=== PATIENT | male | born 1980 | race Two or more races ===

== ENCOUNTER 2022-01-13 14:35 | Emergency (ER) | payer OTHER, SELFPAY ==
[2022-01-13 16:15] VITALS: BP 195/102; PULSE 91; RESP 20; TEMP 36.8; O2SAT 97; BMI 36.5
[2022-01-13 16:28] LABS: Hematocrit 43.1 % (42.0-52.0); Hemoglobin 14.5 g/dl (14.0-18.0); Mean Corpuscular HGB Conc 33.6 g/dl (31.0-36.0); Mean Corpuscular Hemoglobin 29.8 pg (27.0-33.0); Mean Corpuscular Volume 88.5 fL (80.0-98.0); Mean Platelet Volume 10.4 fL (9.4-12.4); Platelet Count 213 X10*3/uL (160-400); Red Blood Count 4.87 X10*6/uL (4.60-5.80); Red Cell Distribution Width 13.2 % (11.0-16.0); White Blood Count 8.6 X10*3/uL (4.8-10.8)
[2022-01-13 16:41] LABS: Anion Gap 13 (12-20); Blood Urea Nitrogen 13 mg/dL (9-16); Calcium 9.9 mg/dL (8.4-10.2); Carbon Dioxide 27 mmol/L (22-29); Chloride 104 mmol/L (96-108); Creatinine Clr Calc Pharmacy 109.8; Estimated Glomerular Filt Rate > 60; Glucose Random 292 mg/dL (60-115); Potassium 4.8 mmol/L (3.3-5.1); Sodium 139 mmol/L (135-145)
[2022-01-13 16:47] LABS: Troponin-I High Sensitivity 18.8 ng/L (<3.5-35.0)
== END 2022-01-13 18:40 | disposition left against medical advice (07) ==
LOC: HO.ED 18:40
PROVIDERS: Emergency Provider Emergency Medicine; PCP Internal Medicine
DX: I10 Essential (primary) hypertension (principal); R51.9 Headache, unspecified; R42 Dizziness and giddiness; E11.9 Type 2 diabetes mellitus without complications; E78.00 Pure hypercholesterolemia, unspecified; Z91.14 Patient's other noncompliance with medication regimen
CPT/HCPCS: 36415; 80048; 84484; 85027; 99282; 99283

== ENCOUNTER 2022-04-11 22:36 | Emergency (ER) | payer OTHER, SELFPAY ==
[2022-04-11 23:57] VITALS: BP 193/102; PULSE 84; RESP 16; TEMP 36.1; O2SAT 96; BMI 38.0
--- NOTE | 2022-04-12 02:28 | ED.WOUNDLAC ---
HPI - Wound/Laceration General Chief Complaint: Wound/Laceration Stated Complaint: diabetic; Toe lac Source: patient Mode of arrival: ambulatory Limitations: no limitations History of Present Illness HPI narrative: 41-year-old male presents with laceration to the bottom of his right great toe after jumping into a pool and hitting something hard. Onset (ago): hour(s) (Within the hour of arrival) Extremity Location: right: foot (Great toe) Place: home Patient tetanus UTD: No Context: accidental Associated symptoms: pain Treatments prior to arrival: bandage Related Data Home Medications Medication Instructions Recorded Confirmed blood sugar diagnostic (FreeStyle #10 ea 08/21/20 10/27/21 Lite Strips) lancets 28 gauge (FreeStyle #100 ea 08/21/20 10/27/21 Lancets) Previous Rx's Medication Instructions Recorded blood-glucose meter (FreeStyle #1 ea 10/24/20 [place] Lite) ergocalciferol (vitamin D2) 1,250 1,250 mcg PO QWEEK 90 Days #13 cap 10/27/21 mcg (50,000 unit) capsule lisinopril 20 mg tablet 20 mg PO DAILY 90 Days #90 tab 10/27/21 metformin 500 mg tablet,extended 500 mg PO BID 90 Days #180 tab 10/27/21 release 24 hr amoxicillin 875 mg-potassium 1 tab PO Q12H 7 Days #14 tab 04/12/22 clavulanate 125 mg tablet Allergies Allergy/AdvReac Type Severity Reaction Status Date / Time shrimp [SHRIMP] Allergy Mild ALLERGERY Verified 04/12/22 00:04 SCREENING grass pollen Allergy Unknown Unknown Verified 04/12/22 00:04 nut - unspecified [nut] Allergy Unknown THROAT Verified 04/12/22 00:04 ITCHING pollen extracts [POLLEN] Allergy Unknown CONGESTION, Verified 04/12/22 00:04 SWELLING tuberculin,PPD,multi-puncture Allergy Unknown postitive Verified 04/12/22 00:04 PPD, neg cxr 2017 BERRIES Allergy Unknown UNKNOWN Uncoded 04/12/22 00:04 Review of Systems Review of Systems: Constitutional: No Fever, No Chills ENT/Mouth: No Ear Pain, No Hoarseness, No sore throat Eyes: No Eye Pain, No Swelling, No Redness, No Foreign Body Cardiovascular: No Chest Pain, No SOB Respiratory: No Cough, No Dyspnea Gastrointestinal: No Nausea, No Vomiting, No Diarrhea, No abdominal Pain Genitourinary: No Dysuria, No Hematuria Musculoskeletal: positive right great toe pain, No Myalgias, No Joint Swelling Skin: Right great toe laceration, No rash Neuro: No Weakness, No Numbness, No Paresthesias, No Loss of Consciousness, No Dizziness, No Headache Psych: No Anxiety/Panic, No Depression Heme/Lymph: no easy bruising, no Lymphadenopathy Endocrine: No Polyuria, No Polydipsia Yes all other systems are reviewed and are negative [facility] Past Medical History Attestation statement: The following information was validated with the patient. Source: old records reviewed Medical History Diabetes mellitus Essential hypertension Hypovitaminosis D Obese Pure hypercholesterolemia Transaminitis Surgical History No pertinent past surgical history Family History Family History Father Diabetes Hypertension Mother Hypertension Diabetes Stroke Social History Social History Housing: Apartment Alcohol intake: current Alcohol intake frequency: holidays/special occasions only Alcohol type: beer Patient Tobacco Use Status: Never used Tobacco e-Cigarette/Vaping Use: Never Used Second Hand Smoke Exposure: No Advance Directives: No Advance Directives Information Provided: Yes service: No Current occupational status: employed Current occupational exposures/hazards: No Physical Exam Vital Signs: Vital Signs: Last Vital Signs Temp 97 F 04/11/22 23:57 Pulse 84 04/11/22 23:57 Resp 16 04/11/22 23:57 BP 193/102 H 04/11/22 23:57 Pulse Ox 96 04/11/22 23:57 BMI result Body Mass Index 38.0 Appearance: Alert. Oriented X3. No acute distress. Eyes: Pupils equal, round and reactive to light. ENT: Pharynx normal. Neck: Normal inspection. Neck supple. CVS: Normal heart rate and rhythm. Pulses normal. Respiratory: No respiratory distress. Breath sounds normal. Abdomen: Soft and nontender. Skin: 5 cm laceration to the plantar aspect of the great toe. Normal skin color. Normal skin turgor. Extremities: No lower extremity edema. Full range of motion. Strength 5/5. Brisk capillary refill. Neuro: No motor deficit. No sensory deficit. Cranial nerves 2-12 intact. Course Course Course Narrative: 41-year-old male presents with laceration to the plantar aspect of the right great toe. Patient was jumping into a pool and hit something hard and sharp. Patient is diabetic. Unknown when last Tdap vaccine was given. Will update Tdap vaccine. Physical exam indicates full range of motion, no indication of tendon injury or deficit. No foreign body noted on irrigation and exploration of wound. Prepped and draped in sterile fashion. Irrigated with copious amounts of normal saline under pressure. Betadine cleanse. Patient tolerated procedure well. Please refer to procedure note for details. 03:30 patient maintains brisk capillary refill and equal pulses. Will discharge home with Augmentin and follow-up with podiatry. Patient verbalized understanding of and agrees to plan of care to discharge home. Verbalized understanding of signs and symptoms indicating need for emergent intervention MDM - Wound/Laceration Differential Diagnosis Differential diagnosis: Likely laceration Medical Records Attestation: I reviewed the patient's medical records. Procedures Laceration Laceration 1: Site: lower extremity (Right plantar surface of great toe) Side (If applicable): right Size (cm): 5 Description: flap and irregular Depth: simple, single layer Local Anesthetic: lidocaine 1% Amount of anesthesia used (mL): 8 Pre-repair: wound explored, irrigated extensively and deep structures intact Skin layer closed with: nylon Size (cm): 4-0 Number of sutures: 13 Technique: simple, interrupted Discharge Plan Discharge Clinical Impression: Laceration Patient Disposition: Home, Self-Care Instructions: Care For Your Stitches (ED), Laceration (ED) Additional Instructions: You were treated for laceration to the bottom of the right great toe. We placed 13 sutures. Please return in 10 days for suture removal. We are treating you with Augmentin 875 mg q.12 hours for the next 7 days. Please finish the entire course of this medication. Please take Tylenol 650 mg every 6 hours as needed and alternate with Motrin 600 mg every 6 hours as needed for pain management. Write down what time you take these medications to prevent accidental overdose. Follow-up with podiatry. You need diabetic foot care. I referred you to Dr. Bustamante. Thank you for choosing this emergency department for evaluation. Please follow-up with primary care physician as needed. Return to the emergency department for any new, concerning, or worsening symptoms. Prescriptions: New amoxicillin-pot clavulanate 875-125 mg tablet 1 tab PO Q12H 7 Days Qty: 14 0RF No Action (DME) lancets [FreeStyle Lancets] 28 gauge misc See Rx Instructions .ROUTE .MEDSUPPLY Qty: 100 0RF Rx Instructions: Once a day As directed (DME) FreeStyle Lite Strips Strip See Rx Instructions .ROUTE .MEDSUPPLY Qty: 10 0RF Rx Instructions: Once a day As directed metformin 500 mg tablet extended release 24 hr 500 mg PO BID 90 Days Qty: 180 3RF ergocalciferol (vitamin D2) 1,250 mcg (50,000 unit) capsule 1,250 mcg PO QWEEK 90 Days Qty: 13 1RF lisinopril 20 mg tablet 20 mg PO DAILY 90 Days Qty: 90 1RF (DME) blood-glucose meter [FreeStyle [place] Lite] Kit See Rx Instructions .ROUTE .MEDSUPPLY Qty: 1 0RF Rx Instructions: As directed Referrals: Damir Bustamante [Physician] - (Diabetic foot care, right great toe laceration) Stand Alone Forms: Work/School Release
[2022-04-12] MEDS: Amoxicillin/Potassium Clav 875 MG TABLET PO (03:38)
[2022-04-12] MEDS: Diphth,Pertus(ACell),Tet Adult 0.5 ML SYRINGE IM (03:38)
[2022-04-12 03:57] VITALS: BP 180/103; PULSE 92; RESP 20; TEMP 36.7; O2SAT 99
--- NOTE | 2022-04-12 03:57 | PC.NURSE ---
pt educated on signs and symptoms of reaction., verbalized understanding. provider made aware of pt BP, provided educated the important of follow up wih pcp, pt stated that he does not takes his BP meds. this RN educated the pt on the important of managing his BP, verbalized understanding
== END 2022-04-12 04:19 | disposition home or self-care (01) ==
PROVIDERS: Emergency Provider Emergency Medicine; PCP Internal Medicine
DX: S91.111A Laceration without foreign body of right great toe without damage to nail, initial encounter (principal); E11.9 Type 2 diabetes mellitus without complications; I10 Essential (primary) hypertension; W16.512A Jumping or diving into swimming pool striking water surface causing other injury, initial encounter; Y93.9 Activity, unspecified; Y92.34 Swimming pool (public) as the place of occurrence of the external cause; Y99.9 Unspecified external cause status
CPT/HCPCS: 12002; 90471; 90715; 99281; 99284

== ENCOUNTER 2022-04-22 09:04 | Emergency (ER) | payer OTHER, SELFPAY ==
[2022-04-22 09:26] VITALS: BP 186/98; PULSE 69; RESP 18; TEMP 37; O2SAT 98; BMI 38.3
--- NOTE | 2022-04-22 10:16 | ED_ITS ---
HPI - Wound/Laceration General Chief Complaint: Wound/Laceration Stated Complaint: suture removal Time Seen by Provider: 04/22/22 10:02 Source: patient Mode of arrival: ambulatory Limitations: no limitations History of Present Illness HPI narrative: Patient presents emergency department for suture removal. He reports 10 days ago he cut the bottom of his right great toe at the bottom of a swimming pool. He presented to this emergency department had 13 sutures placed in was given a prescription for Augmentin for 7 days which she has completed. He states that he has had a little bit of yellow drainage noticed on Band-Aid. Denies fevers, chills, pain or swelling or redness to the foot. Related Data Home Medications Medication Instructions Recorded Confirmed blood sugar diagnostic (FreeStyle #10 ea 08/21/20 10/27/21 Lite Strips) lancets 28 gauge (FreeStyle #100 ea 08/21/20 10/27/21 Lancets) Previous Rx's Medication Instructions Recorded blood-glucose meter (FreeStyle #1 ea 10/24/20 [place] Lite) ergocalciferol (vitamin D2) 1,250 1,250 mcg PO QWEEK 90 Days #13 cap 10/27/21 mcg (50,000 unit) capsule lisinopril 20 mg tablet 20 mg PO DAILY 90 Days #90 tab 10/27/21 metformin 500 mg tablet,extended 500 mg PO BID 90 Days #180 tab 10/27/21 release 24 hr amoxicillin 875 mg-potassium 1 tab PO Q12H 7 Days #14 tab 04/12/22 clavulanate 125 mg tablet amoxicillin 875 mg-potassium 1 tab PO Q12H 7 Days #14 tab 04/22/22 clavulanate 125 mg tablet Allergies Allergy/AdvReac Type Severity Reaction Status Date / Time shrimp [SHRIMP] Allergy Mild ALLERGERY Verified 04/12/22 00:04 SCREENING grass pollen Allergy Unknown Unknown Verified 04/12/22 00:04 nut - unspecified [nut] Allergy Unknown THROAT Verified 04/12/22 00:04 ITCHING pollen extracts [POLLEN] Allergy Unknown CONGESTION, Verified 04/12/22 00:04 SWELLING tuberculin,PPD,multi-puncture Allergy Unknown postitive Verified 04/12/22 00:04 PPD, neg cxr 2017 BERRIES Allergy Unknown UNKNOWN Uncoded 04/12/22 00:04 Review of Systems Review of Systems: Constitutional: No fever, chills, weakness or fatigue. Skin: No rash or itching. Positive laceration Cardiovascular: No chest pain Respiratory: No shortness of breath Gastrointestinal: No nausea, vomiting or diarrhea. No abdominal pain Genitourinary: No burning micturition. No urinary frequency or incontinence. Musculoskeletal: No muscle pain, back pain, joint pain or stiffness. Yes all other systems are reviewed and are negative PMFSH Past Medical History Attestation statement: The following information was validated with the patient. Source: old records reviewed Medical History Diabetes mellitus Essential hypertension Hypovitaminosis D Obese Pure hypercholesterolemia Transaminitis Surgical History No pertinent past surgical history Family History Family History Father Diabetes Hypertension Mother Hypertension Diabetes Stroke Social History Social History Housing: Apartment Alcohol intake: current Alcohol intake frequency: holidays/special occasions only Alcohol type: beer Patient Tobacco Use Status: Never used Tobacco e-Cigarette/Vaping Use: Never Used Second Hand Smoke Exposure: No Advance Directives: No Advance Directives Information Provided: No service: No Current occupational status: employed Current occupational exposures/hazards: No Physical Exam Vital Signs: Vital Signs: Last Vital Signs Temp 98.6 F 04/22/22 09:26 Pulse 69 04/22/22 09:26 Resp 18 04/22/22 09:26 BP 186/98 H 04/22/22 09:26 Pulse Ox 98 04/22/22 09:26 BMI result Body Mass Index 38.3 Vital signs have been reviewed as normal and appeared to be correct. Hypertension.? Heart rate normal.? Respiration rate normal. Temperature normal.? Oxygen saturation normal. Appearance: Alert.?Oriented to person, place and time. No acute distress.?Normal affect. Eyes: Pupils equal, round and reactive to light.? ENT: Pharynx normal.?? Neck: Normal inspection.? Neck supple.?? CVS: Heart sounds normal. Normal heart rate and rhythm.? Pulses normal.?? Respiratory: No respiratory distress.? Lung sounds clear to auscultation rivera aterally?? Abdomen: Soft and non-tender. ?? Skin: Skin warm and dry.? Normal skin color.? Laceration to right great toe plantar surface, without erythema or swelling, 1 cm area active purulent drainage between sutures. Extremities: No lower extremity edema.? No calf ttp? Neuro: Moves all extremities spontaneously. Sensation intact bilaterally. No motor deficits Ambulates with normal steady gait. Course Course Course Narrative: Patient is a 41-year-old male with a past medical history of diabetes mellitus, hypertension presenting to emergency department for removal of sutures. Presents hypertensive, but has not yet taken his antihypertensives today. Thirteen sutures were removed from the plantar aspect of the right great toe. There is a 0.5 cm area of active purulent drainage, concerning for infection. Patient completed a 7 day course of Augmentin, will provide an additional 7 days. Advised that he needs to contact his primary care provider to schedule follow-up visit within 1-3 days. Additionally advised of the importance of following up with Podiatry for routine diabetic foot care. Discussed reasons that he should return to the emergency department. All questions were answered. Patient was discharged home in stable condition. Discharge Plan Discharge Clinical Impression: Laceration Patient Disposition: Home, Self-Care Instructions: Laceration (ED) Additional Instructions: As we discussed, please contact your primary care provider to schedule a follow- up visit within 1-3 days. You have been given a new prescription for an additional course of antibiotics, please complete this entire course. You should contact Podiatry as previously advised to schedule routine diabetic foot care. Please return to the emergency department with any new or worsening symptoms or concerns Prescriptions: New amoxicillin-pot clavulanate 875-125 mg tablet 1 tab PO Q12H 7 Days Qty: 14 0RF No Action amoxicillin-pot clavulanate 875-125 mg tablet 1 tab PO Q12H 7 Days Qty: 14 0RF (DME) lancets [FreeStyle Lancets] 28 gauge misc See Rx Instructions .ROUTE .MEDSUPPLY Qty: 100 0RF Rx Instructions: Once a day As directed (DME) FreeStyle Lite Strips Strip See Rx Instructions .ROUTE .MEDSUPPLY Qty: 10 0RF Rx Instructions: Once a day As directed metformin 500 mg tablet extended release 24 hr 500 mg PO BID 90 Days Qty: 180 3RF ergocalciferol (vitamin D2) 1,250 mcg (50,000 unit) capsule 1,250 mcg PO QWEEK 90 Days Qty: 13 1RF lisinopril 20 mg tablet 20 mg PO DAILY 90 Days Qty: 90 1RF (DME) blood-glucose meter [FreeStyle [place] Lite] Kit See Rx Instructions .ROUTE .MEDSUPPLY Qty: 1 0RF Rx Instructions: As directed Referrals: Rina Wheat MD [Primary Care Provider] - 3 days Interventions: ED Discharge Assessment Last Done: 04/22/22 10:31 Discharge Date/Time: 04/22/22 10:35
== END 2022-04-22 10:35 | disposition home or self-care (01) ==
PROVIDERS: Emergency Provider Emergency Medicine; PCP Internal Medicine
DX: S91.111D Laceration without foreign body of right great toe without damage to nail, subsequent encounter (principal); W45.8XXD Other foreign body or object entering through skin, subsequent encounter; I10 Essential (primary) hypertension; E11.9 Type 2 diabetes mellitus without complications
CPT/HCPCS: 99283

== ENCOUNTER 2022-08-03 05:05 | Emergency (ER) | payer OTHER, SELFPAY ==
[2022-08-03 05:50] VITALS: BP 208/109; PULSE 69; RESP 17; TEMP 36.8; O2SAT 98; BMI 36.5
--- NOTE | 2022-08-03 08:05 | ED.GENADULT ---
HPI - General Adult General Chief complaint: General Medical Stated complaint: thinks strep throat Time Seen by Provider: 08/03/22 07:44 Source: patient Mode of arrival: ambulatory Limitations: no limitations History of Present Illness HPI narrative: 41-year-old male came in for evaluation of sore throat. started about 2 days ago, mostly on the right side of the throat, patient was exposed to his daughter who was sick recently, patient declined any fever or chills, no shortness of breath, no difficulty swallowing. Patient with history of hypertension his primary doctor is trying different medication to control his medication but according to the patient history he is not compliant with his medication every day. Patient declined CP, SOB, R[place], and abdominal pain. Related Data Home Medications Medication Instructions Recorded Confirmed blood sugar diagnostic (FreeStyle #10 ea 08/21/20 06/03/22 Lite Strips) lancets 28 gauge (FreeStyle #100 ea 08/21/20 06/03/22 Lancets) Previous Rx's Medication Instructions Recorded blood-glucose meter (FreeStyle #1 ea 10/24/20 [place] Lite kit) cholecalciferol (vitamin D3) 25 25 mcg PO DAILY 90 days #90 caps 06/03/22 mcg (1,000 unit) capsule lisinopril 20 mg tablet 20 mg PO DAILY 90 days #90 tabs 06/03/22 metformin 500 mg tablet 500 mg PO BID 90 days #180 tabs 06/03/22 amlodipine 5 mg tablet 5 mg PO DAILY #30 tabs 08/03/22 azithromycin 250 mg tablet See Rx Instructions PO .COMPLEX #6 08/03/22 (Zithromax Z-Law) tabs Allergies Allergy/AdvReac Type Severity Reaction Status Date / Time shrimp [SHRIMP] Allergy Mild ALLERGERY Verified 06/03/22 07:47 SCREENING grass pollen Allergy Unknown Unknown Verified 06/03/22 07:47 nut - unspecified [nut] Allergy Unknown THROAT Verified 06/03/22 07:47 ITCHING pollen extracts [POLLEN] Allergy Unknown CONGESTION, Verified 06/03/22 07:47 SWELLING tuberculin,PPD,multi-puncture Allergy Unknown postitive Verified 06/03/22 07:47 PPD, neg cxr 2017 BERRIES Allergy Unknown UNKNOWN Uncoded 06/03/22 07:47 Review of Systems Review of Systems: All other systems are reviewed and are negative Constitutional: Reports as per HPI and Reports no additional constitutional complaints Eyes: Reports as per HPI and Reports no additional eye complaints Reports system reviewed and no additional complaints, except as documented Cardiovascular: Reports as per HPI and Reports no additional cardiovascular complaints Respiratory: Reports as per HPI and Reports no additional respiratory complaints Gastrointestinal: Reports as per HPI and Reports no additional gastrointestinal complaints Genitourinary: Reports no additional female genitourinary complaints Musculoskeletal: Reports no additional musculoskeletal complaints Skin/Breast: Reports system reviewed and no additional complaints, except as docu Psychiatric: Reports no additional psychiatric complaints Endocrine: Reports no additional endocrine complaints Hematologic/Lymphatic: Reports no additional hematologic/lymphatic complaints Allergic/Immunologic: Reports no additional allergic/immunologic complaints Reports system reviewed and no additional complaints, except as documented and Reports Abnormal speech present [facility] Past Medical History Medical History Diabetes mellitus Essential hypertension Hypovitaminosis D Obese Pure hypercholesterolemia Transaminitis Surgical History No pertinent past surgical history Family History Family History Father Diabetes Hypertension Mother Hypertension Diabetes Stroke Social History Social History Housing: Apartment Alcohol intake: current Alcohol intake frequency: holidays/special occasions only Alcohol type: beer Patient Tobacco Use Status: Never used Tobacco e-Cigarette/Vaping Use: Never Used Second Hand Smoke Exposure: No Advance Directives: No Advance Directives Information Provided: Yes service: No Current occupational status: employed Current occupational exposures/hazards: No Cognitive needs: No Hearing needs: No Vision needs: No Physical Exam ED Vital Signs: Vital Signs - 24 hr 08/03/22 05:50 08/03/22 09:41 08/03/22 11:29 Temperature 98.2 F 96.4 F L Pulse Rate 69 74 74 Respiratory Rate 17 18 Blood Pressure 208/109 H 213/110 H 206/113 H Pulse Oximetry 98 98 98 Oxygen Delivery Method Room Air Room Air Room Air BMI result Body Mass Index 36.5 Vital signs have been reviewed as appeared to be correct. Blood pressure elevated. Heart rate normal. Respiration rate normal. Temperature normal. Oxygen saturation normal. Appearance: Alert. Oriented X3. No acute distress. Head: Normal external exam. Normocephalic. Atraumatic. No Byers signs noted. No raccoon eyes noted Eyes: PERRLA. EOMI. Conjunctiva and sclera normal. Eyelids normal. ENT: TM's Normal. Pharynx normal. Uvula midline. Moist mucous membranes. No trismus noted. No drooling noted. No muffled voice noted. Neck: Normal inspection. Neck supple. FROM. No adenopathy. Thyroid Normal. No meningeal signs. No neck mass noted. CVS: Normal heart rate and rhythm. Heart sound normal. No murmurs noted. Pulses normal throughout. Respiratory: No respiratory distress. Painless inspiration. Breath sounds normal. No wheezes/rales/rhonchi noted. Chest nontender. No accessory muscle usage noted or decreased air movement noted. Abdomen: Soft and nontender. Bowel sounds normal in all 4 quadrants. No distention noted. No organomegaly noted. No visible injury noted. Back: No CVA tenderness. Full range of motion noted. Skin: Skin warm and dry. Normal skin color. Normal skin turgor. No rashes/lesions/lacerations noted. Extremities: No lower extremity edema. Extremities exhibit normal range of motion. Extremities nontender. Neuro: Oriented X 3. Cranial nerve exam: II-XII are grossly intact No motor deficit. No sensory deficit. Reflexes normal. Course Course Course Narrative: 41-year-old male came in for sore throat, patient is negative strep infection, will start the patient on Z-Law. Patient found to have high blood pressure values in the ED, patient was instructed to follow up with PCP, monitor and record blood pressure values and reviewed with his PCP, will start the patient on amlodipine 5 mg daily along with lisinopril 40 mg that the patient is on. Patient has a normal neuro exam, no CP, no SOB, no headache, no blurry vision. I explained to the patient the importance of following with his PCP for better management of his hypertension patient is well aware that high blood pressure will increase risk of strokes, heart attacks. Medical Decision Making Lab Data Lab results reviewed: Yes I reviewed the patient's lab results. Labs: Lab Results 08/03/22 08/03/22 Range/Units 08:00 08:00 Influenza Type A (PCR) NEGATIVE (Negative) Influenza Type B (PCR) NEGATIVE (Negative) RSV RNA Qual (PCR) NEGATIVE (Negative) SARS-CoV-2 RNA (RT-PCR) NEGATIVE (Negative) S. pyogenes GrpA BESSY Negative (Negative) Discharge Plan Discharge Clinical Impression: Essential hypertension, Pharyngitis Patient Disposition: Home, Self-Care Instructions: Pharyngitis (ED), Hypertension (ED) Additional Instructions: Seek immediate medical attention if any headache, weakness, numbness, or blood pressure higher than your usual high blood pressure. You were prescribed a new blood pressure medication to be taken with your lisinopril. Monitor blood pressure several times a day and record the numbers down and review with your primary doctor. Prescriptions: New azithromycin [Zithromax Z-Law] 250 mg tablet See Rx Instructions .ROUTE .COMPLEX Qty: 6 0RF Rx Instructions: For 250 mg dose pack: take 500 mg today (day 1), then 250 mg for 4 days (days 2-5) amlodipine 5 mg tablet 5 mg PO DAILY Qty: 30 0RF No Action (DME) lancets [FreeStyle Lancets] 28 gauge misc See Rx Instructions .ROUTE .MEDSUPPLY Qty: 100 Rx Instructions: Once a day As directed (DME) FreeStyle Lite Strips Strip See Rx Instructions .ROUTE .MEDSUPPLY Qty: 10 Rx Instructions: Once a day As directed (DME) blood-glucose meter [FreeStyle [place] Lite] Kit See Rx Instructions .ROUTE .MEDSUPPLY Qty: 1 0RF Rx Instructions: As directed lisinopril 20 mg tablet 20 mg PO DAILY 90 Days Qty: 90 1RF cholecalciferol (vitamin D3) 25 mcg (1,000 unit) capsule 25 mcg PO DAILY 90 Days Qty: 90 2RF metformin 500 mg tablet 500 mg PO BID 90 Days Qty: 180 1RF Referrals: Rina Wheat MD [Primary Care Provider] -
[2022-08-03 08:20] LABS: Strep A Nucleic Acid Negative (Negative)
[2022-08-03] MEDS: amLODIPine Besylate 5 MG TABLET PO ×2 (08:22→10:25)
[2022-08-03 08:48] LABS: Influenza A PCR NEGATIVE (Negative); Influenza B PCR NEGATIVE (Negative); Resp Syncy Virus RNA Qual PCR NEGATIVE (Negative); SARS COV2 PCR INHOUSE NEGATIVE (Negative)
[2022-08-03 09:41] VITALS: BP 213/110; PULSE 74; RESP 18; O2SAT 98
[2022-08-03 11:29] VITALS: BP 206/113; PULSE 74; TEMP 35.8; O2SAT 98
== END 2022-08-03 12:14 | disposition home or self-care (01) ==
PROVIDERS: Emergency Provider Emergency Medicine; PCP Internal Medicine
DX: J02.9 Acute pharyngitis, unspecified (principal); I10 Essential (primary) hypertension; E11.9 Type 2 diabetes mellitus without complications; E78.00 Pure hypercholesterolemia, unspecified; E66.9 Obesity, unspecified; Z20.822 Contact with and (suspected) exposure to COVID-19; Z68.36 Body mass index [BMI] 36.0-36.9, adult; Z79.84 Long term (current) use of oral hypoglycemic drugs; Z79.899 Other long term (current) drug therapy
CPT/HCPCS: 0241U; 36415; 87651; 99283

== ENCOUNTER 2023-02-11 08:45 | Outpatient (REF) | payer OTHER, SELFPAY ==
[2023-02-11 09:33] LABS: Estimated Average Glucose 186 mg/dL; Hemoglobin A1c % 8.1 %
[2023-02-11 10:04] LABS: TSH reflex Free T4 2.98 uIU/mL (0.32-4.0)
== END 2023-02-11 08:46 | disposition home or self-care (01) ==
LOC: HO.LAB 08:45
PROVIDERS: Nurse Practitioner Family; PCP Internal Medicine; Visit Provider Internal Medicine
DX: E11.9 Type 2 diabetes mellitus without complications (principal); I10 Essential (primary) hypertension
CPT/HCPCS: 36415; 83036; 84443

== ENCOUNTER 2023-05-06 05:49 | Emergency (ER) | payer OTHER, SELFPAY ==
--- NOTE | ~2023-05-06 | XR_ITS ---
EXAMINATION: XR LUMBOSACRAL SPINE CLINICAL INFORMATION: Acute lower back pain COMPARISON: None available. TECHNIQUE: Three views of the lumbosacral spine. FINDINGS: No fracture or subluxation. Vertebral body height and alignment maintained. Mild disc space narrowing of L4-L5. The sacroiliac joints are symmetric. The visualized sacrum is intact. Normal bowel gas pattern. XR/XR lumbar spine 2-3V IMPRESSION: Mild disc space narrowing of L4-L5.
[2023-05-06 06:05] VITALS: BP 151/86; PULSE 70; RESP 18; TEMP 36.3; O2SAT 97; BMI 36.5
[2023-05-06 08:00] VITALS: BP 160/90; PULSE 60; RESP 16; TEMP 36.7; O2SAT 98
[2023-05-06 08:09] LABS: Appearance Urine Clear; Color Urine Yellow; Glucose Urine UA >=1000 mg/dL (Negative); Leukocyte Esterase Urine Negative (Negative); Nitrite Urine Negative (Negative); Specific Gravity - Urine >= 1.030 (1.005-1.025); UMIC TRIGGER UACC YES; Urine Blood Negative (Negative); Urine Ketones Trace mg/dL (Negative); Urine Protein Negative (Neg-Trace)
[2023-05-06 08:16] LABS: Bacteria Urine None Seen (None Seen); Hyaline Casts Urine 0-2 /LPF (0-2); RBC Urine 0-2 /HPF (0-2); Squamous Epithelial Cell Urine 0-2 /HPF (0-2); WBC Urine 0-5 /HPF (0-5)
[2023-05-06] MEDS: methocarbamoL 750 MG TABLET PO (08:16)
[2023-05-06] MEDS: oxyCODONE HCl Immed Release 5 MG TABLET PO (08:16)
[2023-05-06] MEDS: Acetaminophen 325 MG TABLET 975 MG PO (08:17)
--- NOTE | 2023-05-06 08:39 | PC.NURSE ---
assumed care of this pt at 0700. pt was sleeping on stretcher but now resting quietly in no apparent distress. vss, medicated per jan. wctm
--- NOTE | 2023-05-06 08:55 | ED_ITS ---
HPI - Back Pain/Injury General Chief Complaint: Back Pain/Injury Stated Complaint: lower back pain, radiates to genitals Time Seen by Provider: 05/06/23 07:06 Source: patient Mode of arrival: ambulatory Limitations: no limitations History of Present Illness HPI Narrative: 42-year-old male presents with back pain. The pain is severe in nature. His low back. Rates left leg. There is no numbness or tingling. There is no loss of bowel or bladder control. There no saddle paresthesia. Denies weakness. Symptoms have been going on for approximately 1 week. However, they got particularly worse over the last 24 hours. Symptoms are worse with movement in certain positions. He has tried anti-inflammatory pain medications without relief. Patient denies a history of low back pain. MD elicited complaint: back pain Onset (ago): day(s) (7) Timing: constant Severity: severe Pain scale (0-10): 10 Similar Symptoms Previously: No Quality: sharp Location: lumbar spine Radiation: buttocks and left upper leg Exacerbating factors: movement Relieving factors: none Associated symptoms: denies other symptoms Treatments prior to arrival: NSAIDS Related Data Previous Rx's Medication Instructions Recorded cholecalciferol (vitamin D3) 25 25 mcg PO DAILY 90 days #90 caps 06/03/22 mcg (1,000 unit) capsule blood pressure monitor #1 ea 01/28/23 blood sugar diagnostic (FreeStyle #100 ea 01/28/23 Lite Strips) lancets 28 gauge (FreeStyle #100 ea 01/28/23 Lancets) blood-glucose meter (FreeStyle #1 ea 02/17/23 [place] Lite kit) glipizide 2.5 mg tablet, extended 2.5 mg PO DAILY #30 tabs 03/12/23 release 24 hr lisinopril 40 mg tablet 40 mg PO DAILY #90 tabs 04/15/23 amlodipine 10 mg tablet 10 mg PO DAILY #90 tabs 05/01/23 meloxicam 15 mg tablet 15 mg PO DAILY #10 tabs 05/06/23 meloxicam 15 mg tablet 15 mg PO DAILY #10 tabs 05/06/23 methocarbamol 750 mg tablet 750 mg PO Q8H PRN muscle spasm #14 05/06/23 tabs methocarbamol 750 mg tablet 750 mg PO TID PRN muscle spasm #14 05/06/23 tabs methylprednisolone 4 mg tablets in 4 mg PO DAILY #21 ea 05/06/23 a dose pack (Methylpred DP) Allergies Allergy/AdvReac Type Severity Reaction Status Date / Time shrimp [SHRIMP] Allergy Mild ALLERGERY Verified 04/15/23 10:53 SCREENING grass pollen Allergy Unknown Unknown Verified 04/15/23 10:53 nut - unspecified [nut] Allergy Unknown THROAT Verified 04/15/23 10:53 ITCHING pollen extracts [POLLEN] Allergy Unknown CONGESTION, Verified 04/15/23 10:53 SWELLING tuberculin,PPD,multi-puncture Allergy Unknown postitive Verified 04/15/23 10:53 PPD, neg cxr 2017 BERRIES Allergy Unknown UNKNOWN Uncoded 04/15/23 10:53 Review of Systems Review of Systems: CONSTITUTIONAL: Denies weight loss, fever and chills. HEENT: Denies changes in vision and hearing. RESPIRATORY: Denies SOB and cough. CV: Denies palpitations no CP. GI: Denies abdominal pain, nausea, vomiting and diarrhea. : Denies dysuria and urinary frequency. MSK: + myalgia and - joint pain. SKIN: Denies rash and pruritus. NEUROLOGICAL: Denies headache and syncope. PSYCHIATRIC: Denies recent changes in mood. Denies anxiety and depression. All other ROS are negative unless in HPI PMFSH Past Medical History Medical History Diabetes mellitus Essential hypertension Hypovitaminosis D Obese Pure hypercholesterolemia Transaminitis Surgical History No pertinent past surgical history Family History Family History Father Diabetes Hypertension Mother Hypertension Diabetes Stroke Social History Social History Housing: Apartment Alcohol intake: never Patient Tobacco Use Status: Never used Tobacco Smoked in Last 30 Days: No e-Cigarette/Vaping Use: Never Used Second Hand Smoke Exposure: No Use of substances other than those prescribed or required for medical reasons: No Advance Directives: No Advance Directives Information Provided: Yes service: No Current occupational status: employed Current occupational exposures/hazards: No Cognitive needs: No Hearing needs: No Vision needs: No Physical Exam Vital Signs: Vital Signs: Last Vital Signs Temp 98.1 F 05/06/23 08:00 Pulse 60 05/06/23 08:00 Resp 16 05/06/23 08:00 BP 160/90 H 05/06/23 08:00 Pulse Ox 98 05/06/23 08:00 O2 Del Method Room Air 05/06/23 08:00 BMI result Body Mass Index 36.5 GEN: Well developed, no acute distress, alert, oriented HEENT: Normocephalic, atraumatic, normal external ears, nose appears normal Eyes: Normal to appearance Neck: Supple, no lymphadenopathy Respiratory: Talks in complete sentences, no respiratory distress Extremities: No clubbing cyanosis or edema, positive left straight leg raise Back: Left lumbar paraspinous tenderness, left buttock tenderness Neurologic: No focal neurologic deficits, cranial nerves 2-12 intact, gait normal Skin: No rash Course Course Course Narrative: 42-year-old male presents with what appears to be nontraumatic low back pain radiating to left leg. Symptoms are severe. Examination was consistent with lumbar radiculopathy. There is no evidence or signs or symptoms concerning for epidural abscess or acute cauda equina syndrome. Patient received analgesics, muscle relaxer. He does feel more controlled at this time as far as pain goes. An x-ray was ordered to rule out fracture subluxation. There is straightening of the normal lordotic curve which would be expected muscle spasms. We discussed pain management. I also recommended follow-up in 2-4 weeks. He is aware he may require physical therapy, acupuncture, chiropractics or other complementary care. Medications Administered Discontinued Medications Generic Name Dose Route Start Last Admin Trade Name Suleiman PRN Reason Stop Dose Admin Acetaminophen 975 mg 05/06/23 07:21 05/06/23 08:17 Acetaminophen 325 Mg Tablet PO 05/06/23 07:22 975 mg ONCE ONE Administration Methocarbamol 750 mg 05/06/23 07:22 05/06/23 08:16 Methocarbamol 750 Mg Tablet PO 05/06/23 07:23 750 mg ONCE ONE Administration Oxycodone HCl 5 mg 05/06/23 07:22 05/06/23 08:16 Oxycodone Hcl Immed Release 5 Mg Tablet PO 05/06/23 07:23 5 mg ONCE ONE Administration Medical Decision Making Medical Decision Making [facility] Narrative: This patient presents with back pain most consistent with lumbar radiculopathy. Differential diagnoses includes lumbago versus musculoskeletal spasm / strain versus sciatica. No back pain red flags on history or physical. Presentation not consistent with malignancy (lack of history of malignancy, lack of B symptoms), fracture (no trauma, no bony tenderness to palpation), cauda equina (no bowel or urinary incontinence/retention, no saddle anesthesia, no distal weakness), AAA, viscus perforation , pulmonary embolism, renal colic, pyelonephritis (afebrile, no CVAT, no urinary symptoms). Plan: pain control, supportive care, reassess Differential Diagnosis Differential Diagnoses: The differential diagnosis associated with the presentation includes (see above) Lab Data MDM Lab Attestation statement: I reviewed the patient's lab results. Labs: Lab Results 05/06/23 Range/Units 08:00 Urine Color Yellow Urine Appearance Clear Urine pH 6.0 (5.0-9.0) Ur Specific [place] >= 1.030 H (1.005-1.025) Urine Protein Negative (Neg-Trace) mg/dL Urine Glucose (UA) >=1000 H (Negative) mg/dL Urine Ketones Trace (Negative) mg/dL Urine Blood Negative (Negative) Urine Nitrite Negative (Negative) Ur Leukocyte Esterase Negative (Negative) Urine RBC 0-2 (0-2) /HPF Urine WBC 0-5 (0-5) /HPF Ur Squamous Epith Cells 0-2 (0-2) /HPF Urine Bacteria None Seen (None Seen) Hyaline Casts 0-2 (0-2) /LPF Independent Interpretation I performed an independent interpretation of an: Plain X-Ray (Lumbar: No acute fracture subluxation, straightening of the lordotic curve) Prescription Management I considered prescription management with: Pain Medication Discharge Plan Discharge Clinical Impression: Lumbar radiculopathy Patient Disposition: Home, Self-Care Instructions: Lumbar Radiculopathy (ED) Additional Instructions: For pain, I am recommending the following regimen Meloxicam 15 mg daily for 10 days Tylenol 1000 mg every 6 hours as needed for additional pain relief Methocarbamol 750 mg every 8 hours as needed for muscle spasm Capsaicin cream 3-4 times daily as needed Prescriptions: New meloxicam 15 mg tablet 15 mg PO DAILY Qty: 10 0RF methocarbamol 750 mg tablet 750 mg PO TID PRN (Reason: muscle spasm) Qty: 14 0RF methylprednisolone [Methylpred DP] 4 mg tablets,dose pack 4 mg PO DAILY Qty: 21 0RF Rx Instructions: Take as directed meloxicam 15 mg tablet 15 mg PO DAILY Qty: 10 0RF methocarbamol 750 mg tablet 750 mg PO Q8H PRN (Reason: muscle spasm) Qty: 14 0RF No Action (DME) blood-glucose meter [FreeStyle [place] Lite] Kit See Rx Instructions .ROUTE .MEDSUPPLY Qty: 1 0RF Rx Instructions: As directed glipizide 2.5 mg tablet extended release 24hr 2.5 mg PO DAILY Qty: 30 2RF amlodipine 10 mg tablet 10 mg PO DAILY Qty: 90 0RF (DME) FreeStyle Lite Strips Strip See Rx Instructions .ROUTE .MEDSUPPLY Qty: 100 1RF Rx Instructions: Once a day As directed (DME) lancets [FreeStyle Lancets] 28 gauge misc See Rx Instructions .ROUTE .MEDSUPPLY Qty: 100 5RF Rx Instructions: Once a day As directed (DME) blood pressure monitor Kit See Rx Instructions .Route Qty: 1 0RF Rx Instructions: As directed lisinopril 40 mg tablet 40 mg PO DAILY Qty: 90 0RF cholecalciferol (vitamin D3) 25 mcg (1,000 unit) capsule 25 mcg PO DAILY 90 Days Qty: 90 2RF Referrals: Physician,Unknown J [Primary Care Provider] - (Primary care provider in 2 weeks)
[2023-05-06] MEDS: dexAMETHasone 2 MG TABLET 10 MG PO (09:22)
[2023-05-06 09:25] VITALS: BP 152/93; PULSE 65; RESP 16; TEMP 36.6; O2SAT 98
== END 2023-05-06 09:54 | disposition home or self-care (01) ==
PROVIDERS: Emergency Provider Emergency Medicine
DX: M54.16 Radiculopathy, lumbar region (principal); M54.50 Low back pain, unspecified; M79.605 Pain in left leg
CPT/HCPCS: 72100; 81001; 99283; 99284; J8540

== ENCOUNTER 2023-05-11 07:04 | Emergency (ER) | payer OTHER, SELFPAY ==
--- NOTE | ~2023-05-11 | US_ITS ---
EXAMINATION: US SCROTUM CLINICAL INFORMATION: Left scrotal pain. COMPARISON: None available. TECHNIQUE: A sonogram of the scrotum was performed assessing lopez-scale appearance and color Doppler flow. Spectral Doppler analysis of the arterial and venous flow were performed in the testes bilaterally. FINDINGS: RIGHT: Right testicle measures 4.5 x 2.2 x 2.9 cm, volume 15 mL. No focal testicular parenchymal lesions are visualized. Appendix testis inferiorly. Spectral Doppler analysis of the arterial and venous flow is normal in the right testis. Right epididymal head is normal in size. No right hydrocele or varicocele is seen. Right epididymal Doppler flow may be increased. LEFT: Left testicle measures 4.4 x 2.1 x 2.5 cm, volume 12 mL. There is a 5 cm cyst in the peripheral testicle. No other focal testicular parenchymal lesions are visualized. Spectral Doppler analysis of the arterial and venous flow is normal in the left testis. 2 left epididymal head cysts largest measuring 8 mm. No left hydrocele or varicocele is seen. Left epididymal Doppler flow is normal. US/US scrotum doppler IMPRESSION: No evidence of torsion. Left epididymal head cysts and small cyst in the testicle. Slight increased vascularity of the right epididymis questionable for epididymitis.
--- NOTE | ~2023-05-11 | US_ITS ---
EXAMINATION: US SCROTUM CLINICAL INFORMATION: Left scrotal pain. COMPARISON: None available. TECHNIQUE: A sonogram of the scrotum was performed assessing lopez-scale appearance and color Doppler flow. Spectral Doppler analysis of the arterial and venous flow were performed in the testes bilaterally. FINDINGS: RIGHT: Right testicle measures 4.5 x 2.2 x 2.9 cm, volume 15 mL. No focal testicular parenchymal lesions are visualized. Appendix testis inferiorly. Spectral Doppler analysis of the arterial and venous flow is normal in the right testis. Right epididymal head is normal in size. No right hydrocele or varicocele is seen. Right epididymal Doppler flow may be increased. LEFT: Left testicle measures 4.4 x 2.1 x 2.5 cm, volume 12 mL. There is a 5 cm cyst in the peripheral testicle. No other focal testicular parenchymal lesions are visualized. Spectral Doppler analysis of the arterial and venous flow is normal in the left testis. 2 left epididymal head cysts largest measuring 8 mm. No left hydrocele or varicocele is seen. Left epididymal Doppler flow is normal. US/US scrotum IMPRESSION: No evidence of torsion. Left epididymal head cysts and small cyst in the testicle. Slight increased vascularity of the right epididymis questionable for epididymitis.
[2023-05-11 07:07] VITALS: BP 169/112; PULSE 70; RESP 18; TEMP 36.6; O2SAT 97; BMI 36.5
[2023-05-11 07:31] VITALS: BP 162/98; PULSE 67; RESP 18; TEMP 36.8; O2SAT 93
--- NOTE | 2023-05-11 07:49 | ED.GENADULT ---
HPI - General Adult General Chief complaint: Back Pain/Injury Stated complaint: back pain, leg pain Time Seen by Provider: 05/11/23 07:42 Source: patient, RN notes reviewed and old records reviewed Mode of arrival: ambulatory History of Present Illness HPI narrative: 42-year-old male with a past medical history of diabetes, HTN, HLD, transaminitis, presenting to the ED complaining of acute on chronic left-sided low back/buttock pain radiating down left lower extremity and to left testicle x 1 week. Patient was seen and treated in our ED on 05/06 for similar symptoms, reports compliance with prescribed meloxicam, methocarbamol, methylprednisone without relief. Reports associated numbness/paresthesias. Denies known injury/trauma or fall, weakness, urinary incontinence/retention, hematuria/dysuria, penile discharge, lesions, concern for STI or new sexual partners. Onset (ago): week(s) Related Data Previous Rx's Medication Instructions Recorded cholecalciferol (vitamin D3) 25 25 mcg PO DAILY 90 days #90 caps 06/03/22 mcg (1,000 unit) capsule blood pressure monitor #1 ea 01/28/23 blood sugar diagnostic (FreeStyle #100 ea 01/28/23 Lite Strips) lancets 28 gauge (FreeStyle #100 ea 01/28/23 Lancets) blood-glucose meter (FreeStyle #1 ea 02/17/23 [place] Lite kit) glipizide 2.5 mg tablet, extended 2.5 mg PO DAILY #30 tabs 03/12/23 release 24 hr lisinopril 40 mg tablet 40 mg PO DAILY #90 tabs 04/15/23 amlodipine 10 mg tablet 10 mg PO DAILY #90 tabs 05/01/23 meloxicam 15 mg tablet 15 mg PO DAILY #10 tabs 05/06/23 meloxicam 15 mg tablet 15 mg PO DAILY #10 tabs 05/06/23 methocarbamol 750 mg tablet 750 mg PO Q8H PRN muscle spasm #14 05/06/23 tabs methocarbamol 750 mg tablet 750 mg PO TID PRN muscle spasm #14 05/06/23 tabs methylprednisolone 4 mg tablets in 4 mg PO DAILY #21 ea 05/06/23 a dose pack (Methylpred DP) levofloxacin 500 mg tablet 500 mg PO DAILY 10 days #10 tabs 05/11/23 morphine 15 mg immediate release 15 mg PO Q8H PRN pain (scale score 05/11/23 tablet 7-10) 3 days #9 tabs Allergies Allergy/AdvReac Type Severity Reaction Status Date / Time shrimp [SHRIMP] Allergy Mild ALLERGERY Verified 05/11/23 07:14 SCREENING grass pollen Allergy Unknown Unknown Verified 05/11/23 07:14 nut - unspecified [nut] Allergy Unknown THROAT Verified 05/11/23 07:14 ITCHING pollen extracts [POLLEN] Allergy Unknown CONGESTION, Verified 05/11/23 07:14 SWELLING tuberculin,PPD,multi-puncture Allergy Unknown postitive Verified 05/11/23 07:14 PPD, neg cxr 2017 BERRIES Allergy Unknown UNKNOWN Uncoded 05/11/23 07:14 Review of Systems Review of Systems: Constitutional: No Fever, No Chills ENT/Mouth: No Ear Pain, No Nasal Congestion, No sore throat, No Rhinorrhea, No Swallowing Difficulty Cardiovascular: No Chest Pain, No SOB Respiratory: No Cough, No Sputum, No Wheezing Gastrointestinal: No Nausea, No Vomiting, No Diarrhea, No Constipation, No Abdominal pain Genitourinary: No Dysuria, No Urinary Frequency, No Hematuria, No Urinary Incontinence/retention, No Urgency, No Flank Pain Musculoskeletal: + joint pain, No Myalgias, No Joint Swelling Skin: No Skin Lesions, No rash Neuro: No Weakness, +Numbness, + Paresthesias Yes all other systems are reviewed and are negative Constitutional: Constitutional: Reports as per HPI Neurologic: Denies Sensory deficit (Neuro) [facility] Past Medical History Attestation statement: The following information was validated with the patient. Source: old records reviewed Medical History Diabetes mellitus Essential hypertension Hypovitaminosis D Obese Pure hypercholesterolemia Transaminitis Surgical History No pertinent past surgical history Family History Family History Father Diabetes Hypertension Mother Hypertension Diabetes Stroke Social History Social History Housing: Apartment Alcohol intake: current Alcohol intake frequency: holidays/special occasions only Alcohol type: beer Patient Tobacco Use Status: Never used Tobacco Smoked in Last 30 Days: No e-Cigarette/Vaping Use: Never Used Second Hand Smoke Exposure: No Use of substances other than those prescribed or required for medical reasons: No Advance Directives: No Advance Directives Information Provided: Yes service: No Current occupational status: employed Current occupational exposures/hazards: No Cognitive needs: No Hearing needs: No Vision needs: No Physical Exam ED Vital Signs: Vital Signs - 24 hr 05/11/23 07:07 05/11/23 07:31 05/11/23 09:49 Temperature 98 F 98.2 F 98.2 F Pulse Rate 70 67 71 Respiratory Rate 18 18 18 Blood Pressure 169/112 H 162/98 H 148/85 H Pulse Oximetry 97 93 95 Oxygen Delivery Method Room Air Room Air Room Air BMI result Body Mass Index 36.5 Const General: cooperative, healthy appearing and no acute distress Orientation/consciousness: patient oriented x3 Limitations: no limitations HENMT Head: Yes normal to inspection and Yes atraumatic Ears: hearing grossly normal bilaterally General nose exam: Normal external nose present Face and sinus: Yes normal facial exam Eyes General: appearance normal, both eyes and all related structures EOM: EOMs intact bilaterally Neck Neck: Yes normal visual inspection and Yes no meningeal signs Resp Effort & Inspection: normal respiratory effort and no respiratory distress Cardio Rate: regular rate Heart sounds: S1 normal heart sound present and S2 normal heart sound present GI Inspection: Yes normal to inspection Palpation (GI): Soft to palpation, nontender, no guarding and not rigid General: Yes no CVA tenderness Penis: normal penis and uncircumcised Scrotum: no ecchymosis, not erythematous and no inguinal hernias Testes: no testicular swelling and testicular tenderness on the left Back/Spine/Pelvis Other: No midline cervical/thoracic/lumbar spinous tenderness/step-off or deformity. + left-sided lumbar/buttock MSK tenderness to palpation reproducing subjective complaint. No erythema/ecchymosis or rash Back: no CVA tenderness Skin Rashes: no rashes Wounds: no wounds Neuro Other: Strength intact throughout. No saddle anesthesia. Sensation intact to light touch. Neurovascular intact distally General: patient oriented x3, tone normal, moves all extremities, no meningeal signs and no focal motor deficits Gait exam (Neuro): Normal gait present Motor exam (neuro): 5/5 motor strength present throughout Sensory Exam: No Sensory deficit (Neuro) Extrem General: Yes normal to inspection Course Course Course Narrative: -UA with glucose, not infected -0916--on re-evaluation patient is sleeping soundly in stretcher. 1036--US scrotum IMPRESSION: No evidence of torsion. Left epididymal head cysts and small cyst in the testicle. Slight increased vascularity of the right epididymis questionable for epididymitis. > results discussed with patient, on re-evaluation reports continued pain. Denies right testicular pain, discussed watchful waiting/urology follow-up versus empiric antibiotic treatment, he is agreeable to antibiotics in Urology follow-up. Will give p.o. morphine and re-evaluate -1200--patient ambulated in the ED with steady gait. Discussed at length needed close follow-up with PCP, physical therapy, and research specialist. Results discussed with patient including worrisome signs and symptoms and strict return precautions, discussed red flag symptoms, and when to return to the emergency department. They verbalized understanding and feel safe for discharge at this time. Medications Administered Discontinued Medications Generic Name Dose Route Start Last Admin Trade Name Freq PRN Reason Stop Dose Admin Cyclobenzaprine HCl 10 mg 05/11/23 08:05 05/11/23 09:56 Cyclobenzaprine Hcl 10 Mg Tablet PO 05/11/23 08:06 10 mg ONCE ONE Administration Ketorolac Tromethamine 30 mg 05/11/23 08:05 05/11/23 09:54 Ketorolac Tromethamine 30 Mg/Ml Vial IM 05/11/23 08:06 30 mg ONCE ONE Administration Lidocaine 1 patch 05/11/23 08:05 05/11/23 09:55 Lidocaine 4 % Patch Adh..Patch TRANSDERMA 05/11/23 08:06 1 patch ONCE ONE Administration Protocol Morphine Sulfate 15 mg 05/11/23 10:51 05/11/23 10:59 Morphine Sulfate Immed Release 15 Mg Tablet PO 05/11/23 10:52 15 mg ONCE ONE Administration Medical Decision Making Medical Decision Making [facility] Narrative: 42-year-old male with a past medical history of diabetes, HTN, HLD, transaminitis, presenting to the ED complaining of acute on chronic left-sided low back/buttock pain radiating down left lower extremity and to left testicle x 1 week. On exam initially hypertensive likely from pain, NAD, no midline spinous tenderness throughout or red flag symptoms, reproducible left buttock/MSK tenderness. + left testicular tenderness without erythema/warmth or lesions. Abdomen soft/nontender. No CVAT. No focal neuro deficits, no saddle anesthesia. Concern for lumbar radiculopathy vs sciatica or herniated disc vs epididymitis or orchitis vs possible renal stone. No appreciable hernia, lower suspicion for testicular torsion or pyelo. Low suspicion for fracture, cauda equina, cord compression, epidural abscess. R/o UTI Plan: UA, CT NG, scrotal ultrasound, pain management, re-evaluate Please refer to course for remaining clinical decision making, interpretation of labs/imaging results, and discussions with consultants and/or family members. Differential Diagnosis Differential Diagnoses: The differential diagnosis associated with the presentation includes As above Admission/Observation Consideration of admission/observation: Escalation of care including admission/observation considered Lab Data MDM Lab Attestation statement: I reviewed the patient's lab results. Labs: Lab Results 05/11/23 05/11/23 Range/Units 07:57 08:46 Urine Color Yellow Urine Appearance Clear Urine pH 6.0 (5.0-9.0) Ur Specific [place] >= 1.030 H (1.005-1.025) Urine Protein Negative (Neg-Trace) mg/dL Urine Glucose (UA) >=1000 H (Negative) mg/dL Urine Ketones Negative (Negative) mg/dL Urine Blood Negative (Negative) Urine Nitrite Negative (Negative) Ur Leukocyte Esterase Negative (Negative) Urine RBC 0-2 (0-2) /HPF Urine WBC 0-5 (0-5) /HPF Ur Squamous Epith Cells 0-2 (0-2) /HPF Urine Bacteria None Seen (None Seen) Hyaline Casts 0-2 (0-2) /LPF Chlam trachomat DNA PCR NOT DETECTED (Not Detect.) N.gonorrhoeae DNA (PCR) NOT DETECTED (Not Detect.) Radiology Impression Discussion of test interpretation with radiology: I have reviewed the radiologist's reading. External Record Review External record reviewed: Inpatient record, Office record, Outpatient record, Prior outpatient labs, Prior outpatient radiology, Primary care record and Outside ED record Tests considered The following testing was considered but not selected: As above Discharge Plan Discharge Clinical Impression: Lumbar radiculopathy, Epididymitis Patient Disposition: Home, Self-Care Instructions: Epididymitis (ED), Lumbar Radiculopathy (ED) Additional Instructions: Your urine is not infected. Her ultrasound shows possible epididymitis, this is of low suspicion however Levaquin as an antibiotic to treat this. You should follow-up with Urology YOU NEED TO FOLLOW-UP WITH A EXTENSION SERVICE ADVISOR AND YOUR PCP CONCERNING HER BACK PAIN. We recommend he start physical therapy Continue previously prescribed medications, in addition morphine is opiate pain medication, take only when pain is severe for the next 3 days If symptoms persist or worsen, pain becomes unbearable, you developed urinary retention or incontinence, or weakness return to the ED Prescriptions: New morphine 15 mg tablet 15 mg PO Q8H PRN (Reason: pain (scale score 7-10)) 3 Days Qty: 9 0RF Rx Instructions: Partial Fill upon patient request. levofloxacin 500 mg tablet 500 mg PO DAILY 10 Days Qty: 10 0RF No Action (DME) blood-glucose meter [FreeStyle [place] Lite] Kit See Rx Instructions .ROUTE .MEDSUPPLY Qty: 1 0RF Rx Instructions: As directed glipizide 2.5 mg tablet extended release 24hr 2.5 mg PO DAILY Qty: 30 2RF amlodipine 10 mg tablet 10 mg PO DAILY Qty: 90 0RF meloxicam 15 mg tablet 15 mg PO DAILY Qty: 10 0RF methocarbamol 750 mg tablet 750 mg PO TID PRN (Reason: muscle spasm) Qty: 14 0RF methylprednisolone [Methylpred DP] 4 mg tablets,dose pack 4 mg PO DAILY Qty: 21 0RF Rx Instructions: Take as directed meloxicam 15 mg tablet 15 mg PO DAILY Qty: 10 0RF methocarbamol 750 mg tablet 750 mg PO Q8H PRN (Reason: muscle spasm) Qty: 14 0RF (DME) FreeStyle Lite Strips Strip See Rx Instructions .ROUTE .MEDSUPPLY Qty: 100 1RF Rx Instructions: Once a day As directed (DME) lancets [FreeStyle Lancets] 28 gauge misc See Rx Instructions .ROUTE .MEDSUPPLY Qty: 100 5RF Rx Instructions: Once a day As directed (DME) blood pressure monitor Kit See Rx Instructions .Route Qty: 1 0RF Rx Instructions: As directed lisinopril 40 mg tablet 40 mg PO DAILY Qty: 90 0RF cholecalciferol (vitamin D3) 25 mcg (1,000 unit) capsule 25 mcg PO DAILY 90 Days Qty: 90 2RF Referrals: [facility] [place] Group] [facility] [Outside] Vianca Pearce MD [Physician] - Interventions: ED Discharge Assessment Last Done: 05/11/23 12:32 Discharge Date/Time: 05/11/23 12:33
[2023-05-11 08:05] LABS: Appearance Urine Clear; Color Urine Yellow; Glucose Urine UA >=1000 mg/dL (Negative); Leukocyte Esterase Urine Negative (Negative); Nitrite Urine Negative (Negative); Specific Gravity - Urine >= 1.030 (1.005-1.025); UMIC TRIGGER UACC YES; Urine Blood Negative (Negative); Urine Ketones Negative (Negative); Urine Protein Negative (Neg-Trace)
[2023-05-11 08:10] LABS: Bacteria Urine None Seen (None Seen); Hyaline Casts Urine 0-2 /LPF (0-2); RBC Urine 0-2 /HPF (0-2); Squamous Epithelial Cell Urine 0-2 /HPF (0-2); WBC Urine 0-5 /HPF (0-5)
[2023-05-11 09:49] VITALS: BP 148/85; PULSE 71; RESP 18; TEMP 36.8; O2SAT 95
[2023-05-11] MEDS: Ketorolac Tromethamine 30 MG/ML VIAL IM (09:54)
[2023-05-11] MEDS: Lidocaine 4 % Patch ADH..PATCH 1 PATCH TRANSDERMA (09:55)
[2023-05-11] MEDS: Cyclobenzaprine HCl 10 MG TABLET PO (09:56)
[2023-05-11] MEDS: Morphine Sulfate Immed Release 15 MG TABLET PO (10:59)
[2023-05-11 11:08] LABS: CT PCR NOT DETECTED (Not Detect.); NG PCR NOT DETECTED (Not Detect.)
--- NOTE | 2023-05-11 11:54 | MHC.EDTECH ---
Walked PT up and down the [place]> PT said he was very sore from doing the walk.
== END 2023-05-11 12:33 | disposition home or self-care (01) ==
PROVIDERS: Physician Assistant; Emergency Provider Emergency Medicine; PCP Internal Medicine
DX: M54.16 Radiculopathy, lumbar region (principal); N45.1 Epididymitis; R10.2 Pelvic and perineal pain; E11.9 Type 2 diabetes mellitus without complications; Z79.899 Other long term (current) drug therapy
CPT/HCPCS: 0353U; 76870; 81001; 93975; 96372; 99284; J1885

== ENCOUNTER 2023-05-17 03:51 | Emergency (ER) | payer OTHER, SELFPAY ==
[2023-05-17 04:01] VITALS: BP 134/85; PULSE 90; O2SAT 99
[2023-05-17 04:11] VITALS: BMI 36.5
[2023-05-17 04:13] VITALS: BP 138/75; PULSE 86; RESP 18; TEMP 37.5; O2SAT 98
--- NOTE | 2023-05-17 06:00 | ED.BACK ---
HPI - Back Pain/Injury General Chief Complaint: Back Pain/Injury Stated Complaint: L BACK PAIN X2 WKS,SEEN FOR SAME PER EMS Time Seen by Provider: 05/17/23 04:24 History of Present Illness HPI Narrative: Patient is a 42-year-old male present today with having back pain radiating down to his left leg for the last 2 weeks. There was no trauma involved. Patient denies any bowel or urinary incontinence. Pain is made worse with movement. Patient came to the ED for pain relief. She has no nausea no vomiting. No focal weakness. No abdominal pain. Related Data Previous Rx's Medication Instructions Recorded cholecalciferol (vitamin D3) 25 25 mcg PO DAILY 90 days #90 caps 06/03/22 mcg (1,000 unit) capsule blood pressure monitor #1 ea 01/28/23 blood sugar diagnostic (FreeStyle #100 ea 01/28/23 Lite Strips) lancets 28 gauge (FreeStyle #100 ea 01/28/23 Lancets) blood-glucose meter (FreeStyle #1 ea 02/17/23 Millstone Lite kit) glipizide 2.5 mg tablet, extended 2.5 mg PO DAILY #30 tabs 03/12/23 release 24 hr lisinopril 40 mg tablet 40 mg PO DAILY #90 tabs 04/15/23 amlodipine 10 mg tablet 10 mg PO DAILY #90 tabs 05/01/23 meloxicam 15 mg tablet 15 mg PO DAILY #10 tabs 05/06/23 levofloxacin 500 mg tablet 500 mg PO DAILY 10 days #10 tabs 05/11/23 prednisone 20 mg tablet 20 mg PO DAILY #3 tabs 05/13/23 cyclobenzaprine 10 mg tablet 10 mg PO TID PRN pain #14 tabs 05/17/23 ibuprofen 400 mg tablet 400 mg PO Q6H PRN pain #20 tabs 05/17/23 oxycodone 5 mg tablet 5 mg PO Q8H PRN pain #7 tabs 05/17/23 Allergies Allergy/AdvReac Type Severity Reaction Status Date / Time shrimp [SHRIMP] Allergy Mild ALLERGERY Verified 05/13/23 12:56 SCREENING grass pollen Allergy Unknown Unknown Verified 05/13/23 12:56 nut - unspecified [nut] Allergy Unknown THROAT Verified 05/13/23 12:56 ITCHING pollen extracts [POLLEN] Allergy Unknown CONGESTION, Verified 05/13/23 12:56 SWELLING tuberculin,PPD,multi-puncture Allergy Unknown postitive Verified 05/13/23 12:56 PPD, neg cxr 2017 BERRIES Allergy Unknown UNKNOWN Uncoded 05/13/23 12:56 Review of Systems Review of Systems: Positive lower back pain radiating down to the left leg no focal weakness no bowel urinary incontinence Yes all other systems are reviewed and are negative [facility] Past Medical History Attestation statement: The following information was validated with the patient. Medical History Diabetes mellitus Essential hypertension Hypovitaminosis D Obese Pure hypercholesterolemia Transaminitis Surgical History No pertinent past surgical history Family History Family History Father Diabetes Hypertension Mother Hypertension Diabetes Stroke Social History Social History Housing: Apartment Alcohol intake: current Alcohol intake frequency: holidays/special occasions only Alcohol type: beer Patient Tobacco Use Status: Never used Tobacco Smoked in Last 30 Days: No e-Cigarette/Vaping Use: Never Used Second Hand Smoke Exposure: No Use of substances other than those prescribed or required for medical reasons: No Advance Directives: No service: No Current occupational status: employed Current occupational exposures/hazards: No Cognitive needs: No Hearing needs: No Vision needs: No Physical Exam Vital Signs: Vital Signs: Last Vital Signs Temp 99.5 F 05/17/23 04:13 Pulse 86 05/17/23 04:13 Resp 18 05/17/23 04:13 BP 138/75 05/17/23 04:13 Pulse Ox 98 05/17/23 04:13 O2 Del Method Room Air 05/17/23 04:13 BMI result Body Mass Index 36.5 Appearance: Alert. Oriented X3. No acute distress. Eyes: Pupils equal, round and reactive to light. ENT: Pharynx normal. Neck: Normal inspection. Neck supple. No lymph nodes noted. No crepitus CVS: Normal heart rate and rhythm. Pulses normal. Normal S1 and S2 Respiratory: No respiratory distress. Breath sounds normal. No Wheezing. No rales examination of patient's back showed no spinal tenderness. Positive paraspinal muscle tenderness on the left side. Sensation in bilateral lower extremity intact. Patient's reflexes equal at patella. Pain on movement of the left leg. Abdomen: Soft and nontender. No rigidity. No distention. good BS x4 Skin: Skin warm and dry. Normal skin color. Normal skin turgor. Extremities: No lower extremity edema. Neurovascular intact to all extremities. No Lacerations. No Rash Neuro: Oriented X 3. No motor deficit. No sensory deficit. Moving all extermities. No slurred speech Medical Decision Making Medical Decision Making MDM Narrative: Patient's pain is been ongoing for 2 weeks. Consistent with having had sciatica. Explained to patient the need for follow-up with primary care. The need for possible MRI if symptoms not relieved. Given patient has no bowel urinary incontinence. No focal weakness. symptoms not consistent with cauda equina syndrome. There was no trauma. Patient has 42 years old. Unlikely tad of fracture. Currently in stable condition. Given a dose of pain medication. Will give additional pain medicine to go home. Currently in stable condition. Differential Diagnosis Differential Diagnoses: The differential diagnosis associated with the presentation includes Sciatica, back pain, Aquinas syndrome Prescription Management I considered prescription management with: Pain Medication Discharge Plan Discharge Clinical Impression: Sciatic leg pain Patient Disposition: Home, Self-Care Instructions: Sciatica (ED) Prescriptions: New cyclobenzaprine 10 mg tablet 10 mg PO TID PRN (Reason: pain) Qty: 14 0RF ibuprofen 400 mg tablet 400 mg PO Q6H PRN (Reason: pain) Qty: 20 0RF oxycodone 5 mg tablet 5 mg PO Q8H PRN (Reason: pain) Qty: 7 0RF Rx Instructions: Partial Fill upon patient request. No Action (DME) blood-glucose meter [FreeStyle Millstone Lite] Kit See Rx Instructions .ROUTE .MEDSUPPLY Qty: 1 0RF Rx Instructions: As directed glipizide 2.5 mg tablet extended release 24hr 2.5 mg PO DAILY Qty: 30 2RF amlodipine 10 mg tablet 10 mg PO DAILY Qty: 90 0RF meloxicam 15 mg tablet 15 mg PO DAILY Qty: 10 0RF levofloxacin 500 mg tablet 500 mg PO DAILY 10 Days Qty: 10 0RF (DME) FreeStyle Lite Strips Strip See Rx Instructions .ROUTE .MEDSUPPLY Qty: 100 1RF Rx Instructions: Once a day As directed (DME) lancets [FreeStyle Lancets] 28 gauge misc See Rx Instructions .ROUTE .MEDSUPPLY Qty: 100 5RF Rx Instructions: Once a day As directed (DME) blood pressure monitor Kit See Rx Instructions .Route Qty: 1 0RF Rx Instructions: As directed lisinopril 40 mg tablet 40 mg PO DAILY Qty: 90 0RF prednisone 20 mg tablet 20 mg PO DAILY Qty: 3 0RF cholecalciferol (vitamin D3) 25 mcg (1,000 unit) capsule 25 mcg PO DAILY 90 Days Qty: 90 2RF
[2023-05-17] MEDS: HYDROmorphone HCl 1 MG/ML SYRINGE IM (06:15)
[2023-05-17] MEDS: LORazepam 2 MG/ML VIAL 0.5 MG IM (06:15)
[2023-05-17] MEDS: Ketorolac Tromethamine 30 MG/ML VIAL IM (06:15)
== END 2023-05-17 06:45 | disposition home or self-care (01) ==
PROVIDERS: Emergency Provider Emergency Medicine Emergency Medical Services; PCP Internal Medicine
DX: M54.42 Lumbago with sciatica, left side (principal); I10 Essential (primary) hypertension; E11.9 Type 2 diabetes mellitus without complications; Z79.84 Long term (current) use of oral hypoglycemic drugs; Z79.899 Other long term (current) drug therapy
CPT/HCPCS: 96372; 99284; J1170; J1885; J2060

== ENCOUNTER 2023-05-18 17:53 | Outpatient (REF) | payer OTHER, SELFPAY ==
--- NOTE | ~2023-05-18 | MR_ITS ---
EXAMINATION: MR LUMBAR SPINE WITHOUT CONTRAST CLINICAL INFORMATION: Worsening lower back pain radiating down the back of the left leg, suspect S1 radicular distribution COMPARISON: None TECHNIQUE: MRI of the lumbar spine was obtained using routine sequences without contrast. 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 No suspicious marrow signal or focal osseous lesion. No significant marrow edema. The vertebral body heights are maintained. Disc desiccation and height loss at L4-L5. The conus medullaris terminates at the level of T12-L1. The distal spinal cord is normal in appearance. The cauda equina nerve roots appear normal. No significant abnormalities of the paraspinal musculature. Limited evaluation of the intra-abdominal structures without significant abnormalities. The abdominal aorta is of normal contour and caliber. SPINAL LEVELS: L1-L2: No significant spinal canal or neuroforaminal narrowing. L2-L3: No significant spinal canal or neuroforaminal narrowing. L3-L4: Shallow disc bulge with superimposed small right central protrusion. No significant spinal canal or neural foraminal narrowing L4-L5: Shallow disc bulge with superimposed left subarticular protrusion. Ligamentum flavum thickening. Mild facet arthropathy. Left greater than right subarticular zone narrowing with mass effect on the traversing L5 nerve roots. Mild central spinal canal stenosis. No significant neural foraminal narrowing L5-S1: No significant spinal canal or neuroforaminal narrowing. MR/MR lumbar spine wo con IMPRESSION: 1. 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 2. At L4-L5, there is degenerative disc disease with shallow disc bulge and superimposed left subarticular protrusion which results in left greater than right subarticular zone narrowing with mass effect on the traversing L5 nerve roots and mild central spinal canal stenosis.
== END 2023-05-18 17:54 | disposition home or self-care (01) ==
LOC: HO.MRI 17:53
PROVIDERS: Visit Provider Internal Medicine
DX: M54.17 Radiculopathy, lumbosacral region (principal); M54.50 Low back pain, unspecified; M79.605 Pain in left leg
CPT/HCPCS: 72148

== ENCOUNTER 2023-05-28 08:23 | Outpatient (REF) | payer OTHER, SELFPAY | END 2023-05-28 08:24 | disposition home or self-care (01) | LOC: HO.LAB 08:23 | PROVIDERS: PCP Internal Medicine; Visit Provider Nurse Practitioner Family | DX: E55.9 Vitamin D deficiency, unspecified (principal); E78.5 Hyperlipidemia, unspecified; E11.9 Type 2 diabetes mellitus without complications; I10 Essential (primary) hypertension; E78.00 Pure hypercholesterolemia, unspecified | CPT/HCPCS: 36415; 80053; 80061; 82043; 82306; 85027 ==

== ENCOUNTER 2023-05-31 09:15 | Outpatient (REF) | payer OTHER, SELFPAY | END 2023-05-31 09:16 | disposition home or self-care (01) | LOC: HO.LAB 09:15 | PROVIDERS: PCP Internal Medicine; Visit Provider Neurological Surgery | DX: Z01.818 Encounter for other preprocedural examination (principal) | CPT/HCPCS: 36415; 83036; 85025 ==

== ENCOUNTER 2023-06-16 09:56 | Outpatient (AMB) | payer OTHER, SELFPAY ==
--- NOTE | 2023-06-16 10:09 | A.OFFVIS_ITS ---
Intake Intake Visit Reasons: Epididymitis Intake Note: New Patient presents for initial visit Epididymitis Urology Medication: previously treated with levofloxacin Blood Thinner: none Telesales Specialist Required: No Accompanied by: Self / Same As Patient Allergies shrimp [SHRIMP] Allergy (Mild, Verified 06/16/23 13:47) ALLERGERY SCREENING grass pollen Allergy (Unknown, Verified 06/16/23 13:47) Unknown nut - unspecified [nut] Allergy (Unknown, Verified 06/16/23 13:47) THROAT ITCHING pollen extracts [POLLEN] Allergy (Unknown, Verified 06/16/23 13:47) CONGESTION, SWELLING tuberculin,PPD,multi-puncture Allergy (Unknown, Verified 06/16/23 13:47) postitive PPD, neg cxr 2017 oxycodone Adverse Reaction (Intermediate, Verified 06/16/23 13:52) tremors BERRIES Allergy (Unknown, Uncoded 06/16/23 13:47) UNKNOWN HPI HPI Comments History of Present Illness Details Tai is a very pleasant 42-year-old [place] male patient of Dr. Fuller. He has a PMH of diabetes, HTN, HLD, transaminitis. He presents to the office today as a new patient for epididymitis. In discussion with the patient today he reports having seeked emergency room care approximately 1 month ago for left- sided testicular/scrotal pain that was radiating down his leg. He reports having had recent surgical intervention with Dr. Pearce lumbar spine surgery and has been feeling and doing much better. In assessment of the patient today left-sided epididymal head tenderness noted otherwise exam WNL. Discussed at length potential causes for epididymitis. Discussed scrotal ultrasound results with the patient today. No evidence of torsion. Left epididymal head cysts and small cyst in the testicle. Slight increased vascularity of the right epididymis questionable for epididymitis. Patient otherwise denies any urinary issues or concerns at this time. When asked he denies urinary urgency, urinary frequency, incontinence, nocturia, hematuria, dysuria, foul smelling urine, changes to urinary stream, flank pain, fever, and or chills. He is happy with his current voiding parameters. In office urinalysis results reviewed with the patient today. [facility] Medical History Diabetes mellitus Essential hypertension Hypovitaminosis D Obese Pure hypercholesterolemia Transaminitis Surgical History History of back surgery Family History Father Diabetes Hypertension Mother Hypertension Diabetes Stroke Social History Housing: Apartment Alcohol intake: current Alcohol intake frequency: holidays/special occasions only Alcohol type: beer Patient Tobacco Use Status: Never used Tobacco e-Cigarette/Vaping Use: Never Used Second Hand Smoke Exposure: No service: No Current occupational status: unemployed Cognitive needs: No Hearing needs: No Vision needs: No Review of Systems Const All systems reviewed & are unremarkable except as noted in HPI and below Reports as per HPI Eyes Reports no additional complaints ENT Reports no additional complaints Card Reports as per HPI Resp Reports no additional complaints GI Reports as per HPI Reports as per HPI Musc Reports as per HPI Neuro Reports as per HPI Psych Reports no additional complaints Endo Reports as per HPI Ramon/Lymph Reports no additional complaints Aller/Immun Reports no additional complaints Physical Exam Const General: cooperative, healthy appearing, comfortable, no acute distress, well developed, alert and awake Nutritional Appearance: overweight Orientation/consciousness: patient oriented x3 Limitations: no limitations HEENT Head: Yes normal to inspection, Yes normocephalic and Yes atraumatic Ears: hearing grossly normal bilaterally Eyes General: appearance normal, both eyes and all related structures Neck Neck: Yes normal visual inspection and Yes trachea midline Chest Chest palpation & inspection: normal inspection of the chest Resp Effort & Inspection: normal respiratory effort and able to speak in complete sentences Cardio Rate: regular rate GI Inspection: Yes normal to inspection General: Yes no CVA tenderness Penis: normal penis and uncircumcised Meatus: meatus normal Testes: epididymal tenderness on the left Back/Spine/Pelvis Back: no CVA tenderness Skin General skin exam: no rashes or lesions noted Neuro General: patient oriented x3 Extrem General: Yes normal to inspection Psych Appearance: grossly normal and well kempt Mental Status: mental status grossly normal Speech and movement: Normal speech and movement present and Clear speech present Affect: normal affect Attitude: cooperative Thought process: Normal thought process present Thought content: Normal thought content present Insight: Fair insight present (Psych) Judgement: Fair judgement present (Psych) Results AMB Urinalysis, Automated UA Leukoctes 0 Mel/uL Last Edit by Pacheco Siu on 06/16/23 10:22 UA Nitrite Last Edit by Pacheco Siu on 06/16/23 10:22 UA Urobilinogen 0.2 mg/dL Last Edit by Pacheco Siu on 06/16/23 10:22 UA Protein 30 mg/dL Last Edit by Clothes Horsetruman Siu on 06/16/23 10:22 UA pH 6.0 Last Edit by Clothes Horsetruman Siu on 06/16/23 10:22 UA Blood 0 Amrit/uL Last Edit by Clothes Horsetruman Bandwagonhaylie on 06/16/23 10:22 UA Specific [place] 1.020 Last Edit by LendYouryocasta Siu on 06/16/23 10:22 UA Ketone Last Edit by Clothes Horsetruman Siu on 06/16/23 10:22 UA Bilirubin 0 mg/dL Last Edit by Clothes Horsetruman Siu on 06/16/23 10:22 UA Glucose 0 mg/dL Last Edit by Clothes Horsetruman Siu on 06/16/23 10:22 Results Reviewed Results Reviewed: Laboratory Last Values Urine pH (Auto) 6.0 06/16/23 10:14 Specific [place] (Auto) 1.020 06/16/23 10:14 Urine Protein (Auto) 30 mg/dL 06/16/23 10:14 Glucose (UA)(Auto) 0 mg/dL 06/16/23 10:14 Urine Blood (Auto) 0 Amrit/uL 06/16/23 10:14 Urine Bilirubin (Auto) 0 mg/dL 06/16/23 10:14 Urine Urobilinogen (Auto) 0.2 mg/dL 06/16/23 10:14 Leukocyte Esterase (Auto) 0 Mel/uL 06/16/23 10:14 Date of Service: 05/11/23 EXAMINATION: US SCROTUM FINDINGS: RIGHT: Right testicle measures 4.5 x 2.2 x 2.9 cm, volume 15 mL. No focal testicular parenchymal lesions are visualized. Appendix testis inferiorly. Spectral Doppler analysis of the arterial and venous flow is normal in the right testis. Right epididymal head is normal in size. No right hydrocele or varicocele is seen. Right epididymal Doppler flow may be increased. LEFT: Left testicle measures 4.4 x 2.1 x 2.5 cm, volume 12 mL. There is a 5 cm cyst in the peripheral testicle. No other focal testicular parenchymal lesions are visualized. Spectral Doppler analysis of the arterial and venous flow is normal in the left testis. 2 left epididymal head cysts largest measuring 8 mm. No left hydrocele or varicocele is seen. Left epididymal Doppler flow is normal. IMPRESSION: No evidence of torsion. Left epididymal head cysts and small cyst in the testicle. Slight increased vascularity of the right epididymis questionable for epididymitis. Assessment & Plan Assessment & Plan (1) Epididymitis: Code(s): N45.1 - Epididymitis Plan In office urinalysis results reviewed with the patient today; as noted above. Recent scrotal ultrasound results reviewed with the patient today; as noted above. Patient with left-sided epididymal head tenderness on exam Start doxycycline 100 mg b.i.d. as discussed and prescribed. Patient denies any urinary issues or concerns at this time He reports to be happy with current voiding parameters Follow-up in 1 month; or sooner with any issues, concerns, and or questions. Orders: Orders AMB Urinalysis Automated Today Z13.9 - Encounter for screening, unspecified Medications: New doxycycline hyclate 100 mg PO BID 14 days 28 tabs 0RF N39.0 - Urinary tract infection, site not specified, N45.1 - Epididymitis Patient Instructions: The patient had an opportunity to ask questions regarding the treatment plan. All questions were answered. Physical exam, labs, and imaging were discussed and reviewed in detail. As well as risks, benefits, and discussion of treatment choices. No major barriers to understanding were identified. The patient expressed understanding and agreement with the above treatment plan. The patient was made aware they should contact our office by phone for worsening of their current condition, the appearance of new symptoms, or with any questions or concerns. Compliance is encouraged with any medications and follow up testing that is ordered. It is a privilege to be allowed the opportunity to participate in? your urological care.? Again, if you have any questions or concerns If you have any questions or concerns please do not hesitate to contact me. The office is [phone]. This note is constructed using voice recognition software. While every effort has been made to ensure accuracy investigator welfare errors may have been included. Yours sincerely, KATY Yeh Coding Level of Care Code New Pt Level 4 (83817) Diagnoses Epididymitis N45.1
== END 2023-06-16 10:52 | disposition home or self-care (01) ==
PROVIDERS: PCP Internal Medicine; Visit Provider Nurse Practitioner Family
DX: N45.1 Epididymitis (principal)
CPT/HCPCS: 99204

== ENCOUNTER → 2023-06-16 09:56 | Outpatient (BNVA) | payer OTHER, SELFPAY | PROVIDERS: PCP Internal Medicine; Visit Provider Nurse Practitioner Family | DX: N45.1 Epididymitis (principal) | CPT/HCPCS: 99202 ==

== ENCOUNTER 2023-06-16 13:29 | Outpatient (AMB) | payer OTHER, SELFPAY ==
[2023-06-16 13:40] VITALS: BP 160/100; BMI 35.4
--- NOTE | 2023-06-16 13:40 | MHC.PC.OV ---
Vital Signs 06/16/23 13:40 06/16/23 14:46 Height 5 ft 7 in Weight 226 lb BMI 35.4 BP 160/100 H 160/90 H Blood Pressure Location Lt brachial Lt brachial Position Sitting Sitting Intake Visit Reasons: 3 MONTH FOLLOW UP ( Meds) Intake Note: Patient here for a 3 month follow up Integration Architect Required: No Accompanied by: cousin Allergies shrimp [SHRIMP] Allergy (Mild, Verified 06/16/23 13:47) ALLERGERY SCREENING grass pollen Allergy (Unknown, Verified 06/16/23 13:47) Unknown nut - unspecified [nut] Allergy (Unknown, Verified 06/16/23 13:47) THROAT ITCHING pollen extracts [POLLEN] Allergy (Unknown, Verified 06/16/23 13:47) CONGESTION, SWELLING tuberculin,PPD,multi-puncture Allergy (Unknown, Verified 06/16/23 13:47) postitive PPD, neg cxr 2016 oxycodone Adverse Reaction (Intermediate, Verified 06/16/23 13:52) tremors BERRIES Allergy (Unknown, Uncoded 06/16/23 13:47) UNKNOWN Medication List - Last Reconciled 06/16/23 by Rina Pink MD amlodipine 10 mg PO DAILY blood pressure monitor As directed blood sugar diagnostic (FreeStyle Lite Strips) Once a day As directed blood-glucose meter (FreeStyle [place] Lite kit) As directed cholecalciferol (vitamin D3) 25 mcg PO DAILY 90 days doxycycline hyclate 100 mg PO BID 14 days glipizide ER 2.5 mg PO DAILY lancets (FreeStyle Lancets) Once a day As directed lisinopril 40 mg PO DAILY Tobacco use date assessed: 05/18/23 Dental Screening Dental Screen Date: 06/16/23 Did you have a dental visit in the last 12 months?: Yes Did you have a dental problem in the last 6 months where you did not have access to dental care?: No Was dental information given to patient?: Patient has dentist HPI HPI Comments History of Present Illness Details This is a 42-year-old male with diabetes mellitus type 2, hypertension, hyperlipidemia and lumbar radiculopathy that comes today accompanied by cousin Ayaka Arreguni follow-up on his conditions. A1c within goal but he has been taking Actos 45 mg and Jardiance from his sister. This is why I will start him on this medications. Blood pressure elevated and he has not been compliant with amlodipine and lisinopril. Blood pressure will be recheck in 3 weeks by nurse navigator. LDL elevated I will start him on statins. Had recent lumbar surgery for herniated disc repair and feels markedly improved. No fever, bowel or bladder incontinence. Has occasional pain and I will give meloxicam as needed. No chest pain or shortness of breath. [facility] Medical History Diabetes mellitus Essential hypertension Hypovitaminosis D Obese Pure hypercholesterolemia Transaminitis Surgical History History of back surgery Family History Father Diabetes Hypertension Mother Hypertension Diabetes Stroke Social History Housing: Apartment Alcohol intake: current Alcohol intake frequency: holidays/special occasions only Alcohol type: beer Patient Tobacco Use Status: Never used Tobacco e-Cigarette/Vaping Use: Never Used Second Hand Smoke Exposure: No service: No Current occupational status: unemployed Cognitive needs: No Hearing needs: No Vision needs: No Questionnaire Thrive Questionnaire Date Thrive assessed: 05/18/23 CONRADO-7 AMB Questionnaire CONRADO-7 Date CONRADO - 7 assessed: 05/18/23 Source: Developed by Drs. Delvis Singleton, Jennifer Caldwell, Alcides Kelley and colleagues, with an educational antione from [employer]. Review of Systems Const All systems reviewed & are unremarkable except as noted in HPI and below Eyes Reports no additional complaints, Denies change in vision and Denies other visual disturbances Card Denies chest pain at rest, Denies chest pain with activity, Denies edema, Denies irregular heart rhythm, Denies claudication, Denies dyspnea, Denies dyspnea on exertion, Denies orthopnea, Denies paroxysmal nocturnal dyspnea and Denies slow heart rate Resp Denies cough, Denies dyspnea and Denies dyspnea on exertion GI Denies abdominal pain, Denies change in bowel habits, Denies excessive flatus, Denies nausea and Denies vomiting Denies urinary hesitancy, Denies urinary incontinence and Denies urinary urgency Musc Denies abnormal gait, Reports back pain, Denies atrophy, Denies deformity, Denies limited range of motion and Reports radiating pain into limb Skin/Breast Denies bleeding lesions, Denies changing lesions and Denies rash Neuro Denies abnormal gait and Denies lack of coordination Physical exam (Primary Care) Vital Signs: Last Vital Signs BP 160/90 H 06/16/23 14:46 BMI result Body Mass Index 35.4 Tobacco/Smoking Status: Tobacco use Status Tobacco use date assessed 05/18/23 06/16/23 13:46 Patient Tobacco Use Status Never used Tobacco 06/16/23 13:46 e-Cigarette/Vaping Use Never Used 06/16/23 13:46 Thrive Assessment: Date of Thrive Assessment Date Thrive assessed 05/18/23 06/16/23 13:46 Eyes General: appearance normal, both eyes and all related structures Eyelids: Yes eyelids normal Conjunctivae: conjunctivae normal Neck Neck: Yes normal visual inspection and Yes supple Resp Effort & Inspection: normal respiratory effort Auscultation: clear to auscultation bilaterally Cardio Jugular venous distension: no JVD Rate: regular rate Rhythm: regular rhythm Heart sounds: S1 normal heart sound present and S2 normal heart sound present Extrem General: Yes full ROM Results AMB Urinalysis, Automated UA Leukoctes 0 Mel/uL Last Edit by I Love QC on 06/16/23 10:22 UA Nitrite Last Edit by [employer] Love QC on 06/16/23 10:22 UA Urobilinogen 0.2 mg/dL Last Edit by I Love QC on 06/16/23 10:22 UA Protein 30 mg/dL Last Edit by I Love QC on 06/16/23 10:22 UA pH 6.0 Last Edit by [employer] Love QC on 06/16/23 10:22 UA Blood 0 Amrit/uL Last Edit by I Love QC on 06/16/23 10:22 UA Specific [place] 1.020 Last Edit by I Love QC on 06/16/23 10:22 UA Ketone Last Edit by I Love QC on 06/16/23 10:22 UA Bilirubin 0 mg/dL Last Edit by I Love QC on 06/16/23 10:22 UA Glucose 0 mg/dL Last Edit by Pacheco Siu on 06/16/23 10:22 Assessment and Plan Assessment & Plan (1) Diabetes mellitus: Code(s): E11.9 - Type 2 diabetes mellitus without complications Qualifiers: Diabetes mellitus complication status: with hyperglycemia Diabetes mellitus termination clerk insulin use: without termination clerk use Diabetes mellitus type: type 2 Qualified Code(s): E11.65 - Type 2 diabetes mellitus with hyperglycemia Plan: Continue Actos, Jardiance and glipizide. A1c goal is equal or less than 7%. (2) Essential hypertension: Code(s): I10 - Essential (primary) hypertension Plan: Be compliant with amlodipine and lisinopril. Blood pressure goal is equal or less than 130/80. Recheck blood pressure with nurse navigator in 3 weeks. (3) Hyperlipidemia LDL goal <70: Code(s): E78.5 - Hyperlipidemia, unspecified Plan: Start statins. LDL goal is less than 70. (4) Left lumbosacral radiculopathy: Code(s): M54.17 - Radiculopathy, lumbosacral region Plan: Start meloxicam as needed Orders: Orders Lipid Panel 4 Months E78.5 - Hyperlipidemia, unspecified Microalbumin, Random (w Creat) 4 Months E11.9 - Type 2 diabetes mellitus without complications Vitamin D 25-OH Total 4 Months E55.9 - Vitamin D deficiency, unspecified Comprehensive [place]. Panel Fast 4 Months M54.9 - Dorsalgia, unspecified Medications: New rosuvastatin 10 mg PO DAILY 90 days 90 tabs 1RF E78.5 - Hyperlipidemia, unspecified empagliflozin (Jardiance) 10 mg PO DAILY 90 days 90 tabs 1RF E11.9 - Type 2 diabetes mellitus without complications pioglitazone 45 mg PO DAILY 90 days 90 tabs 1RF E11.9 - Type 2 diabetes mellitus without complications meloxicam 15 mg PO DAILY 90 days PRN 90 tabs 0RF pain Refilled cholecalciferol (vitamin D3) 25 mcg PO DAILY 90 days 90 caps 2RF E55.9 - Vitamin D deficiency, unspecified amlodipine 10 mg PO DAILY 90 tabs 0RF I10 - Essential (primary) hypertension lisinopril 40 mg PO DAILY 90 tabs 0RF I10 - Essential (primary) hypertension glipizide ER 2.5 mg PO DAILY 30 tabs 2RF E11.65 - Type 2 diabetes mellitus with hyperglycemia Coding Level of Care Code Est Pt Level 4 (02598) Diagnoses Diabetes mellitus E11.65 Diabetes mellitus complication status: with hyperglycemia Diabetes mellitus termination clerk insulin use: without fdc use Diabetes mellitus type: type 2 Essential hypertension I10 Hyperlipidemia LDL goal <70 E78.5 Left lumbosacral radiculopathy M54.17 Time Spent (min) 24
[2023-06-16 14:46] VITALS: BP 160/90
== END 2023-06-16 14:15 | disposition home or self-care (01) ==
PROVIDERS: PCP Internal Medicine; Visit Provider Internal Medicine
DX: E11.65 Type 2 diabetes mellitus with hyperglycemia (principal); I10 Essential (primary) hypertension; E78.5 Hyperlipidemia, unspecified; M54.17 Radiculopathy, lumbosacral region
CPT/HCPCS: 99214

== ENCOUNTER 2023-07-20 09:17 | Outpatient (AMB) | payer OTHER, SELFPAY ==
--- NOTE | 2023-07-20 09:39 | MHC.OFFVIS ---
Intake Intake Visit Reasons: 1m follow up Intake Note: Patient presents for follow up visit Epididymitis Urology Medication: treated with doxycycline Blood Thinner: none Chief Supply Chain Officer Required: No Accompanied by: Self / Same As Patient Allergies shrimp [SHRIMP] Allergy (Mild, Verified 07/20/23 10:03) ALLERGERY SCREENING grass pollen Allergy (Unknown, Verified 07/20/23 10:03) Unknown nut - unspecified [nut] Allergy (Unknown, Verified 07/20/23 10:03) THROAT ITCHING pollen extracts [POLLEN] Allergy (Unknown, Verified 07/20/23 10:03) CONGESTION, SWELLING tuberculin,PPD,multi-puncture Allergy (Unknown, Verified 07/20/23 10:03) postitive PPD, neg cxr 2016 oxycodone Adverse Reaction (Intermediate, Verified 07/20/23 10:03) tremors BERRIES Allergy (Unknown, Uncoded 07/20/23 10:03) UNKNOWN Medication List - Last Reconciled 07/20/23 by BIANKA Yeh-JEANIE amlodipine 10 mg PO DAILY blood pressure monitor As directed blood sugar diagnostic (FreeStyle Lite Strips) Once a day As directed blood-glucose meter (FreeStyle [place] Lite kit) As directed cholecalciferol (vitamin D3) 25 mcg PO DAILY 90 days empagliflozin (Jardiance) 10 mg PO DAILY 90 days glipizide ER 2.5 mg PO DAILY lancets (FreeStyle Lancets) Once a day As directed lisinopril 40 mg PO DAILY meloxicam 15 mg PO DAILY PRN 90 days pioglitazone 45 mg PO DAILY 90 days rosuvastatin 10 mg PO DAILY 90 days HPI HPI Comments History of Present Illness Details Tai is a very pleasant 42-year-old [place] male patient of Dr. Fuller. He has a PMH of diabetes, HTN, HLD, transaminitis. He presents to the office today for a follow up of his epididymitis. Of note, patient was seen approximately 1 month ago at which time he was prescribed doxycycline x2 weeks for epididymitis. In discussion with the patient today he reports to be doing and feeling well. He reports to have completed antibiotic therapy as prescribed. He reports feeling left-sided testicular tenderness has since subsided. On exam today no epididymal head tenderness noted bilaterally. No pain illicited when examining bilateral testicles/scrotum. No open areas, lesions, or drainage noted to scrotum and or penis. Patient otherwise denies any urinary issues or concerns at this time. When asked he denies urinary urgency, urinary frequency, incontinence, nocturia, hematuria, dysuria, foul smelling urine, changes to urinary stream, flank pain, fever, and or chills. He is happy with his current voiding parameters. In office urinalysis results reviewed with the patient today. [facility] Medical History Diabetes mellitus Essential hypertension Hypovitaminosis D Obese Pure hypercholesterolemia Transaminitis Surgical History History of back surgery Family History Father Diabetes Hypertension Mother Hypertension Diabetes Stroke Social History Housing: Apartment Alcohol intake: current Alcohol intake frequency: holidays/special occasions only Alcohol type: beer Patient Tobacco Use Status: Never used Tobacco e-Cigarette/Vaping Use: Never Used Second Hand Smoke Exposure: No service: No Current occupational status: unemployed Cognitive needs: No Hearing needs: No Vision needs: No Review of Systems Const All systems reviewed & are unremarkable except as noted in HPI and below Reports as per HPI Eyes Reports no additional complaints ENT Reports no additional complaints Card Reports as per HPI Resp Reports no additional complaints GI Reports as per HPI Reports as per HPI Musc Reports as per HPI Neuro Reports as per HPI Psych Reports no additional complaints Endo Reports as per HPI Ramon/Lymph Reports no additional complaints Aller/Immun Reports no additional complaints Physical Exam Const General: cooperative, healthy appearing, comfortable, no acute distress, well developed, alert and awake Nutritional Appearance: overweight Orientation/consciousness: patient oriented x3 Limitations: no limitations HEENT Head: Yes normal to inspection, Yes normocephalic and Yes atraumatic Ears: hearing grossly normal bilaterally Eyes General: appearance normal, both eyes and all related structures Neck Neck: Yes normal visual inspection and Yes trachea midline Chest Chest palpation & inspection: normal inspection of the chest Resp Effort & Inspection: normal respiratory effort and able to speak in complete sentences Cardio Rate: regular rate GI Inspection: Yes normal to inspection General: Yes no CVA tenderness Penis: normal penis and uncircumcised Meatus: meatus normal Testes: Testes normal Back/Spine/Pelvis Back: no CVA tenderness Skin General skin exam: no rashes or lesions noted Neuro General: patient oriented x3 Extrem General: Yes normal to inspection Psych Appearance: grossly normal and well kempt Mental Status: mental status grossly normal Speech and movement: Normal speech and movement present and Clear speech present Affect: normal affect Attitude: cooperative Thought process: Normal thought process present Thought content: Normal thought content present Insight: Fair insight present (Psych) Judgement: Fair judgement present (Psych) Results AMB Urinalysis, Automated UA Leukoctes 0 Mel/uL Last Edit by [employer] Sherron on 07/20/23 09:48 UA Nitrite Last Edit by [employer] Sunitahaylie on 07/20/23 09:48 UA Urobilinogen 0.2 mg/dL Last Edit by [employer] Sunitahaylie on 07/20/23 09:48 UA Protein 0 mg/dL Last Edit by Guidance Softwarehaylie on 07/20/23 09:48 UA pH 6.0 Last Edit by Appsindepyocasta Dorseyhaylie on 07/20/23 09:48 UA Blood 0 Amrit/uL Last Edit by Guidance Softwarehaylie on 07/20/23 09:48 UA Specific [place] 1.015 Last Edit by Guidance Softwarehaylie on 07/20/23 09:48 UA Ketone Last Edit by Guidance Softwarehaylie on 07/20/23 09:48 UA Bilirubin 0 mg/dL Last Edit by Guidance Softwarehaylie on 07/20/23 09:48 UA Glucose 0 mg/dL Last Edit by Guidance Softwarehaylie on 07/20/23 09:48 Results Reviewed Results Reviewed: Laboratory Last Values Urine pH (Auto) 6.0 07/20/23 09:47 Specific [place] (Auto) 1.015 07/20/23 09:47 Urine Protein (Auto) 0 mg/dL 07/20/23 09:47 Glucose (UA)(Auto) 0 mg/dL 07/20/23 09:47 Urine Blood (Auto) 0 Amrit/uL 07/20/23 09:47 Urine Bilirubin (Auto) 0 mg/dL 07/20/23 09:47 Urine Urobilinogen (Auto) 0.2 mg/dL 07/20/23 09:47 Leukocyte Esterase (Auto) 0 Mel/uL 07/20/23 09:47 Assessment & Plan Assessment & Plan (1) Epididymitis: Code(s): N45.1 - Epididymitis Plan In office urinalysis results reviewed with the patient today; as noted above. exam WNL; as noted above Discussed at length potential causes for epididymitis Patient denies any urinary issues or concerns at this time Discussed importance of managing diabetes for overall health and well-being. He reports to be happy with current voiding parameters Follow-up; PRN Orders: Orders AMB Urinalysis Automated Today Z13.9 - Encounter for screening, unspecified Patient Instructions: The patient had an opportunity to ask questions regarding the treatment plan. All questions were answered. Physical exam, labs, and imaging were discussed and reviewed in detail. As well as risks, benefits, and discussion of treatment choices. No major barriers to understanding were identified. The patient expressed understanding and agreement with the above treatment plan. The patient was made aware they should contact our office by phone for worsening of their current condition, the appearance of new symptoms, or with any questions or concerns. Compliance is encouraged with any medications and follow up testing that is ordered. It is a privilege to be allowed the opportunity to participate in? your urological care.? Again, if you have any questions or concerns If you have any questions or concerns please do not hesitate to contact me. The office is [phone]. This note is constructed using voice recognition software. While every effort has been made to ensure accuracy general hardware salesperson errors may have been included. Yours sincerely, KATY Yeh Coding Level of Care Code Est Pt Level 3 (09706) Diagnoses Epididymitis N45.1
== END 2023-07-20 10:00 | disposition home or self-care (01) ==
PROVIDERS: PCP Internal Medicine; Visit Provider Nurse Practitioner Family
DX: N45.1 Epididymitis (principal); Z13.9 Encounter for screening, unspecified
CPT/HCPCS: 99213

== ENCOUNTER → 2023-07-20 09:17 | Outpatient (BNVA) | payer OTHER, SELFPAY | PROVIDERS: PCP Internal Medicine; Visit Provider Nurse Practitioner Family | DX: N45.1 Epididymitis (principal) | CPT/HCPCS: 81003; 99212 ==

== ENCOUNTER 2023-11-04 16:20 | Emergency (ER) | payer OTHER, SELFPAY ==
--- NOTE | ~2023-11-04 | XR_ITS ---
EXAMINATION: XR CHEST CLINICAL INFORMATION: Cough. COMPARISON: 03/11/2019. TECHNIQUE: 2 views of the chest were obtained. FINDINGS: No significant abnormality is noted involving the heart, lungs, mediastinum, bony thorax or soft tissues. XR/XR chest 2V IMPRESSION: Unremarkable examination.
[2023-11-04 16:24] VITALS: BP 148/96; PULSE 102; RESP 24; TEMP 37.1; O2SAT 100; BMI 38.1
--- NOTE | 2023-11-04 16:25 | ED_ITS ---
HPI - General Adult General Chief complaint: Asthma Stated complaint: Asthma Attack Time Seen by Provider: 11/04/23 19:46 Source: patient Mode of arrival: ambulatory Limitations: no limitations History of Present Illness HPI narrative: Patient is a 42-year-old male presenting to the ED with worsening cough and shortness of breath for the past two weeks. States fever to 101 two days ago. States symptoms have worsened over past few days and today has had increased coughing episodes. Has used nebulizer and inhaler but states today were not working. Denies chest pain or palpitations. She complaint: cough, dyspnea Onset (ago): week(s) Location: chest Relieving factors: rest Exacerbating factors: movement Associated symptoms: cough Treatments prior to arrival: other (albuterol, neb) Related Data Previous Rx's Medication Instructions Recorded blood pressure monitor #1 ea 01/28/23 lancets 28 gauge (FreeStyle #100 ea 01/28/23 Lancets) blood-glucose meter (FreeStyle #1 ea 02/17/23 [place] Lite kit) amlodipine 10 mg tablet 10 mg PO DAILY #90 tabs 06/16/23 cholecalciferol (vitamin D3) 25 25 mcg PO DAILY 90 days #90 caps 06/16/23 mcg (1,000 unit) capsule empagliflozin 10 mg tablet 10 mg PO DAILY 90 days #90 tabs 06/16/23 (Jardiance) glipizide 2.5 mg tablet, extended 2.5 mg PO DAILY #30 tabs 06/16/23 release 24 hr lisinopril 40 mg tablet 40 mg PO DAILY #90 tabs 06/16/23 pioglitazone 45 mg tablet 45 mg PO DAILY 90 days #90 tabs 06/16/23 rosuvastatin 10 mg tablet 10 mg PO DAILY 90 days #90 tabs 06/16/23 blood sugar diagnostic (FreeStyle #100 ea 07/26/23 Lite Strips) meloxicam 15 mg tablet 15 mg PO DAILY PRN pain 90 days 08/06/23 #90 tabs albuterol sulfate 90 mcg/actuation 2 puff inhalation Q4-6H PRN 11/04/23 aerosol inhaler shortness of breath or wheezing #6.7 grams azithromycin 250 mg tablet See Rx Instructions PO .COMPLEX #6 11/04/23 tabs benzonatate 100 mg capsule 100 mg PO TID PRN cough #14 caps 11/04/23 prednisone 20 mg tablet 40 mg (2 x 20 mg) PO DAILY #10 tabs 11/04/23 Allergies Allergy/AdvReac Type Severity Reaction Status Date / Time shrimp [SHRIMP] Allergy Mild ALLERGERY Verified 07/20/23 10:03 SCREENING grass pollen Allergy Unknown Unknown Verified 07/20/23 10:03 nut - unspecified [nut] Allergy Unknown THROAT Verified 07/20/23 10:03 ITCHING pollen extracts [POLLEN] Allergy Unknown CONGESTION, Verified 07/20/23 10:03 SWELLING tuberculin,PPD,multi-puncture Allergy Unknown postitive Verified 07/20/23 10:03 PPD, neg cxr 2017 oxycodone AdvReac Intermediate tremors Verified 07/20/23 10:03 BERRIES Allergy Unknown UNKNOWN Uncoded 07/20/23 10:03 Review of Systems Review of Systems: As per HPI. Yes all other systems are reviewed and are negative Constitutional: Constitutional: Reports as per HPI PMFSH Past Medical History Medical History Diabetes mellitus Essential hypertension Hypovitaminosis D Obese Pure hypercholesterolemia Transaminitis Surgical History History of back surgery Family History Family History Father Diabetes Hypertension Mother Hypertension Diabetes Stroke Social History Social History Housing: Apartment Alcohol intake: current Alcohol intake frequency: holidays/special occasions only Alcohol type: beer Patient Tobacco Use Status: Never used Tobacco e-Cigarette/Vaping Use: Never Used Second Hand Smoke Exposure: No Advance Directives: No Advance Directives Information Provided: No service: No Current occupational status: unemployed Cognitive needs: No Hearing needs: No Vision needs: No Physical Exam ED Vital Signs: Vital Signs - 24 hr 11/04/23 16:24 Temperature 98.7 F Pulse Rate 102 H Respiratory Rate 24 H Blood Pressure 148/96 H Pulse Oximetry 100 Oxygen Delivery Method Room Air BMI result Body Mass Index 38.1 Vital signs have been reviewed and appear to be correct. Blood pressure elevated. Heart rate slightly tachycardic. Respiratory rate normal. Temperature normal. Oxygen saturation normal. Const General: cooperative, healthy appearing and no acute distress Orientation/consciousness: oriented to person, oriented to place, oriented to time and patient oriented x3 Limitations: no limitations HENMT Head: Yes normocephalic and Yes atraumatic Ears: external ears normal General nose exam: Normal external nose present Face and sinus: Yes face symmetric Mouth: oropharynx normal and moist mucous membranes Throat: Yes uvula midline Eyes Pupils: Equal, round and reactive pupils present Neck Neck: Yes normal visual inspection and Yes supple Resp Effort & Inspection: normal respiratory effort, able to speak in complete sentences, no respiratory distress, not tachypneic and no use of accessory muscles Auscultation: clear to auscultation bilaterally and wheezes scattered wheezes Cardio Rate: regular rate Rhythm: regular rhythm Heart sounds: S1 normal heart sound present and S2 normal heart sound present GI Palpation (GI): Soft to palpation and nontender Auscultation: normoactive bowel sounds General: Yes no CVA tenderness Back/Spine/Pelvis Back: no CVA tenderness Skin General skin exam: elasticity normal and turgor normal Neuro General: oriented to person, oriented to place, oriented to time, patient oriented x3, moves all extremities, no focal motor deficits and CN's II-XI intact bilaterally Cranial nerves: Yes Equal, round and reactive pupils present Cognition (Neuro): normal cognition Extrem General: Yes full ROM, Yes no pedal edema and Yes no calf tenderness Psych Mental Status: mental status grossly normal Affect: normal affect Thought process: Normal thought process present Medical Decision Making Medical Decision Making MDM Narrative: Patient is a 42-year-old male presenting to the ED with worsening cough and shortness of breath for the past two weeks. On exam patient is awake, A+Ox3, mildly tachycardic, VS WNL, afebrile, normal neurological exam without focal deficits, physical exam findings as above. Given reported symptoms and physical exam findings, initial differential includes asthma exacerbation, viral illness, bronchitis, pneumonia. Swabs for Covid, flu, and RSV negative. X-ray notable for no evidence of pneumonia. My interpretation is in agreement with the radiologist's interpretation. Will treat patient for bronchitis with azithromycin, prednisone, benzonatate, and albuterol. Instructed patient to follow up with PCP. Return precautions discussed. Patient verbalized understanding of and agreement with plan. Differential Diagnosis Differential Diagnoses: The differential diagnosis associated with the presentation includes As per [facility] Lab Data [facility] Lab Attestation statement: I reviewed the patient's lab results. As per [facility] Labs: Lab Results 11/04/23 Range/Units 17:35 Influenza Type A (PCR) NEGATIVE (Negative) Influenza Type B (PCR) NEGATIVE (Negative) RSV RNA Qual (PCR) NEGATIVE (Negative) SARS-CoV-2 RNA (RT-PCR) NEGATIVE (Negative) Independent Interpretation I performed an independent interpretation of an: Plain X-Ray Interpretation: No evidence of pneumonia on cxr Radiology Impression Discussion of test interpretation with radiology: I have reviewed the radiologist's reading. Radiologist Impression: XR/XR chest 2V IMPRESSION: Unremarkable examination. External Record Review External record reviewed: Inpatient record, Office record and Outpatient record Prescription Management I considered prescription management with: Antibiotic and Other Discharge Plan Discharge Clinical Impression: Bronchitis, Asthma Patient Disposition: Home, Self-Care Instructions: Acute Bronchitis (ED) Additional Instructions: You were evaluated in the emergency department today for cough and shortness of breath. You are being treated for bronchitis with an antibiotic, please complete the full course as prescribed. You are also being prescribed a short c ourse of steroids to decrease inflammation. You are being prescribed an inhaler which you can use every 4-6 hours as needed for shortness of breath. You are being prescribed cough medicine which you can take every 8 hours. Please follow-up with your primary care provider this week. Return to the emergency department if you develop worsening shortness of breath, difficulty breathing, chest pain, fever not improved with Tylenol or ibuprofen, or any other concerning symptoms. Prescriptions: New azithromycin 250 mg tablet See Rx Instructions .ROUTE .COMPLEX Qty: 6 0RF Rx Instructions: For 250 mg dose pack: take 500 mg today (day 1), then 250 mg for 4 days (days 2-5) prednisone 20 mg tablet 40 mg PO DAILY Qty: 10 0RF benzonatate 100 mg capsule 100 mg PO TID PRN (Reason: cough) Qty: 14 0RF albuterol sulfate 90 mcg/actuation HFA aerosol inhaler 2 puff inhalation Q4-6H PRN (Reason: shortness of breath or wheezing) Qty: 6.7 0RF No Action (DME) blood-glucose meter [FreeStyle [place] Lite] Kit See Rx Instructions .ROUTE .MEDSUPPLY Qty: 1 0RF Rx Instructions: As directed (DME) FreeStyle Lite Strips Strip See Rx Instructions .ROUTE .MEDSUPPLY Qty: 100 1RF Rx Instructions: Once a day As directed meloxicam 15 mg tablet 15 mg PO DAILY PRN (Reason: pain) 90 Days Qty: 90 0RF (DME) lancets [FreeStyle Lancets] 28 gauge misc See Rx Instructions .ROUTE .MEDSUPPLY Qty: 100 5RF Rx Instructions: Once a day As directed (DME) blood pressure monitor Kit See Rx Instructions .Route Qty: 1 0RF Rx Instructions: As directed rosuvastatin 10 mg tablet 10 mg PO DAILY 90 Days Qty: 90 1RF cholecalciferol (vitamin D3) 25 mcg (1,000 unit) capsule 25 mcg PO DAILY 90 Days Qty: 90 2RF amlodipine 10 mg tablet 10 mg PO DAILY Qty: 90 0RF lisinopril 40 mg tablet 40 mg PO DAILY Qty: 90 0RF glipizide 2.5 mg tablet extended release 24hr 2.5 mg PO DAILY Qty: 30 2RF Jardiance 10 mg tablet 10 mg PO DAILY 90 Days Qty: 90 1RF pioglitazone 45 mg tablet 45 mg PO DAILY 90 Days Qty: 90 1RF
[2023-11-04 18:22] LABS: Influenza A PCR NEGATIVE (Negative); Influenza B PCR NEGATIVE (Negative); Resp Syncy Virus RNA Qual PCR NEGATIVE (Negative); SARS COV2 PCR INHOUSE NEGATIVE (Negative)
[2023-11-04 19:47] VITALS: BP 149/96; PULSE 90; RESP 18; TEMP 37.6; O2SAT 97
== END 2023-11-04 20:00 | disposition home or self-care (01) ==
PROVIDERS: Registered Nurse Emergency; Emergency Provider Emergency Medicine; PCP Internal Medicine
DX: J40 Bronchitis, not specified as acute or chronic (principal); Z20.822 Contact with and (suspected) exposure to COVID-19; Z20.828 Contact with and (suspected) exposure to other viral communicable diseases
CPT/HCPCS: 0241U; 71046; 99282; 99283

== ENCOUNTER 2024-02-03 14:08 | Outpatient (AMB) | payer OTHER, SELFPAY ==
--- NOTE | 2024-02-03 14:15 | A.OFFPC_ITS ---
Vital Signs 02/03/24 14:19 02/03/24 15:04 Height 5 ft 7 in Weight 242 lb BMI 37.9 BP 180/120 H 180/110 H Blood Pressure Location Lt brachial Lt brachial Position Sitting Sitting Intake Visit Reasons: PE Intake Note: Patient here for a physical exam Furniture Sander Required: No Accompanied by: Self / Same As Patient Allergies shrimp [SHRIMP] Allergy (Mild, Verified 02/03/24 14:48) ALLERGERY SCREENING grass pollen Allergy (Unknown, Verified 02/03/24 14:48) Unknown nut - unspecified [nut] Allergy (Unknown, Verified 02/03/24 14:48) THROAT ITCHING pollen extracts [POLLEN] Allergy (Unknown, Verified 02/03/24 14:48) CONGESTION, SWELLING tuberculin,PPD,multi-puncture Allergy (Unknown, Verified 02/03/24 14:48) postitive PPD, neg cxr 2016 metformin Adverse Reaction (Severe, Verified 02/03/24 14:52) Diarrhea oxycodone Adverse Reaction (Intermediate, Verified 02/03/24 14:48) tremors BERRIES Allergy (Unknown, Uncoded 02/03/24 14:48) UNKNOWN Medication List - Last Reconciled 02/03/24 by Rina Pink MD albuterol sulfate 90 mcg/actuation 2 puffs inhalation Q4-6H PRN amlodipine 10 mg PO DAILY blood pressure monitor As directed blood sugar diagnostic (FreeStyle Lite Strips) Once a day As directed blood-glucose meter (FreeStyle [place] Lite kit) As directed cholecalciferol (vitamin D3) 25 mcg PO DAILY 90 days empagliflozin (Jardiance) 10 mg PO DAILY 90 days glipizide ER 2.5 mg PO DAILY lancets (FreeStyle Lancets) Once a day As directed lisinopril 40 mg PO DAILY meloxicam 15 mg PO DAILY PRN 90 days pioglitazone 45 mg PO DAILY 90 days rosuvastatin 10 mg PO DAILY 90 days Tobacco use date assessed: 02/03/24 Dental Screening Dental Screen Date: 02/03/24 Did you have a dental visit in the last 12 months?: No Did you have a dental problem in the last 6 months where you did not have access to dental care?: No Was dental information given to patient?: Patient has dentist HPI HPI Comments History of Present Illness Details This is a 43-year-old male with diabetes mellitus type 2 that comes for his physical exam. A1c elevated but has improved and he has been out of all his medications due to insurance issue. Last diabetic eye exam as per patient was less than a year ago and was normal. He is obese with a BMI of 37.9 and was advised to do diet and exercise to reach BMI goal less than 30. Blood pressure elevated and will be recheck by nurse navigator in 3 weeks. He does not have any of the medications. [facility] Medical History Pure hypercholesterolemia Transaminitis Obese Hypovitaminosis D Essential hypertension Diabetes mellitus Surgical History History of back surgery Family History Father Diabetes Hypertension Mother Hypertension Diabetes Stroke Social History Housing: Apartment Alcohol intake: current Alcohol intake frequency: holidays/special occasions only Alcohol type: beer Patient Tobacco Use Status: Never used Tobacco e-Cigarette/Vaping Use: Never Used Second Hand Smoke Exposure: No service: No Current occupational status: unemployed Cognitive needs: No Hearing needs: No Vision needs: No Questionnaire PHQ-9 Over the last 2 weeks, how often have you been bothered by any of the following problems? 1. Little interest or pleasure in doing things: not at all 2. Feeling down, depressed, or hopeless: not at all 3. Trouble falling or staying asleep, or sleeping too much: not at all 4. Feeling tired or having little energy: not at all 5. Poor appetite or overeating: not at all 6. Feeling bad about yourself - or that you are a failure or have let yourself or your family down: not at all 7. Trouble concentrating on things, such as reading the newspaper or watching television: not at all 8. Moving or speaking so slowly that other people could have noticed. Or the opposite - being so fidgety or restless that you have been moving around a lot more than usual: not at all 9. Thoughts that you would be better off or of hurting yourself in some way: not at all Total score: 0 Depression Screening Interpretation: Negative Depression Screening Done: Yes 18910 - PHQ-9 Billing: Yes Source: Developed by Drs. Delvis Singleton, Alcides Ayoub and colleagues, with an educational antione from [employer] Thrive Questionnaire Date Thrive assessed: 05/18/23 AUDIT C Alcohol Use Questionnaire (AUDIT-C) 1. How often do you have a drink containing alcohol?: Monthly or less 2. How many drinks containing alcohol do you have on a typical day when you are drinking?: 1 or 2 3. How often do you have six or more drinks on one occasion?: Never Total Score: 1 Score Reviewed/Action Taken: No CONRADO-7 AMB Questionnaire CONRADO-7 Date CONRADO - 7 assessed: 02/03/24 Feeling nervous, anxious, or on edge: 1 = Several days Not being able to stop or control worryin = Not at all Worrying too much about different things: 0 = Not at all Trouble relaxin = Not at all Being so restless that it is hard to sit still: 0 = Not at all Becoming easily annoyed or irritable: 0 = Not at all Feeling afraid as if something awful might happen: 0 = Not at all Total CONRADO-7 score (0-4 normal; 5-9 mild; 10-14 moderate; 15-21 severe): 1 Source: Developed by Drs. Delvis Singleton, Alcides Ayoub and colleagues, with an educational antione from [employer] CONRADO-7 Assessment Billing CONRADO-7 Assessment Tool: CONRADO-7 Assessment 37184 Review of Systems Const All systems reviewed & are unremarkable except as noted in HPI and below Eyes Reports no additional complaints, Denies change in vision and Denies other visual disturbances Card Denies chest pain at rest, Denies chest pain with activity, Denies edema, Denies irregular heart rhythm, Denies claudication, Denies dyspnea, Denies dyspnea on exertion, Denies orthopnea, Denies paroxysmal nocturnal dyspnea and Denies slow heart rate Resp Denies cough, Denies dyspnea and Denies dyspnea on exertion GI Denies abdominal pain, Denies change in bowel habits, Denies excessive flatus, Denies nausea and Denies vomiting Denies urinary hesitancy, Denies urinary incontinence and Denies urinary urgency Musc Denies abnormal gait, Denies atrophy, Denies deformity and Denies limited range of motion Skin/Breast Denies bleeding lesions, Denies changing lesions and Denies rash Neuro Denies abnormal gait, Denies behavioral changes, Denies confusion and Denies lack of coordination Psych Denies behavioral changes and Denies confusion Physical exam (Primary Care) Vital Signs: Last Vital Signs BP 180/120 H 02/03/24 14:19 BMI result Body Mass Index 37.9 Tobacco/Smoking Status: Tobacco use Status Tobacco use date assessed 02/03/24 02/03/24 14:19 Patient Tobacco Use Status Never used Tobacco 02/03/24 14:19 e-Cigarette/Vaping Use Never Used 02/03/24 14:19 PHQ-9: PHQ-9 Score PHQ-9: Total score 0 02/03/24 14:30 Depression Screening Interpretation: Negative Thrive Assessment: Date of Thrive Assessment Date Thrive assessed 05/18/23 02/03/24 14:19 Const General: No confusion Orientation/consciousness: patient oriented x3 and No confusion HENMT Head: Yes normal to inspection, Yes normocephalic and Yes atraumatic Ears: external ears normal Eyes General: appearance normal, both eyes and all related structures Eyelids: Yes eyelids normal Conjunctivae: conjunctivae normal Neck Neck: Yes normal visual inspection and Yes supple Resp Effort & Inspection: normal respiratory effort Auscultation: clear to auscultation bilaterally Cardio Jugular venous distension: no JVD Rate: regular rate Rhythm: regular rhythm Heart sounds: S1 normal heart sound present and S2 normal heart sound present GI Inspection: Yes normal to inspection Palpation (GI): Soft to palpation and nontender Auscultation: normal bowel sounds Skin General skin exam: no rashes or lesions noted Neuro General: patient oriented x3, no focal motor deficits and No confusion Extrem General: Yes full ROM Psych Appearance: grossly normal Results AMB Hemoglobin A1c AMB Hemoglobin A1c 7.7 % Last Edit by CATHERINE Webber on 02/03/24 14:3 8 Results Reviewed Results Reviewed: Laboratory Last Values Hgb A1c (Clinic) 7.7 % (4.0-6.0) H 02/03/24 14:14 Assessment and Plan Assessment & Plan (1) Adult general medical exam: Code(s): Z00.00 - Encounter for general adult medical examination without abnormal findings Plan: Repeat in a year. (2) Diabetes mellitus: Code(s): E11.9 - Type 2 diabetes mellitus without complications Qualifiers: Diabetes mellitus type: type 2 Diabetes mellitus intermodal dispatcher insulin use: without half-way use Diabetes mellitus complication status: with hyperglycemia Qualified Code(s): E11.65 - Type 2 diabetes mellitus with hyperglycemia Plan: Restart [employer]. A1c goal is equal or less than 7 %. Orders: Orders AMB Hemoglobin A1c Today E11.9 - Type 2 diabetes mellitus without complications Microalbumin, Random (w Creat) 4 Months E11.9 - Type 2 diabetes mellitus without complications Vitamin D 25-OH Total 4 Months E55.9 - Vitamin D deficiency, unspecified Comprehensive [place]. Panel Fast 4 Months Z00.00 - Encounter for general adult medical examination without abnormal findings Lipid Panel 4 Months E78.5 - Hyperlipidemia, unspecified Medications: Changed From lisinopril 40 mg PO DAILY 90 tabs 0RF I10 - Essential (primary) hypertension To lisinopril 40 mg PO DAILY 90 days 90 tabs 1RF I10 - Essential (primary) hypertension Refilled cholecalciferol (vitamin D3) 25 mcg PO DAILY 90 days 90 caps 2RF E55.9 - Vitamin D deficiency, unspecified amlodipine 10 mg PO DAILY 90 tabs 2RF I10 - Essential (primary) hypertension rosuvastatin 10 mg PO DAILY 90 days 90 tabs 1RF E78.5 - Hyperlipidemia, unspecified pioglitazone 45 mg PO DAILY 90 days 90 tabs 1RF E11.9 - Type 2 diabetes mellitus without complications Coding Level of Care Code Est Pt Prev Care 40-64y(61433) Diagnoses Adult general medical exam Z00.00 Type 2 diabetes mellitus with hyperglycemia, without long-term current use of insulin E11.65 Diabetes mellitus type: type 2 Diabetes mellitus half-way insulin use: without intermodal dispatcher use Diabetes mellitus complication status: with hyperglycemia Additional Codes CONRADO-7 Assessment Billing - CONRADO-7 Assessment Tool: CONRADO-7 Assessment [id number] ([id number]) Time Spent (min) 33
[2024-02-03 14:19] VITALS: BP 180/120; BMI 37.9
[2024-02-03 15:04] VITALS: BP 180/110
== END 2024-02-03 15:04 | disposition home or self-care (01) ==
PROVIDERS: Visit Provider Internal Medicine
DX: Z00.00 Encounter for general adult medical examination without abnormal findings (principal); E11.65 Type 2 diabetes mellitus with hyperglycemia; E66.01 Morbid (severe) obesity due to excess calories; Z68.37 Body mass index [BMI] 37.0-37.9, adult; I10 Essential (primary) hypertension
CPT/HCPCS: 83036; 99396

== ENCOUNTER → 2024-07-14 09:47 | Outpatient (BNVA) | payer SELFPAY | PROVIDERS: PCP Internal Medicine; Visit Provider Internal Medicine | DX: Z02.79 Encounter for issue of other medical certificate (principal) ==

== ENCOUNTER 2025-08-14 08:56 | Emergency (ER) | payer OTHER, SELFPAY ==
[2025-08-14] VITALS (9 sets, daily range): BP systolic 173–205; BP diastolic 93–103; PULSE 67–81; RESP 17–18; TEMP 37.1–37.3; O2SAT 97–100; BMI 35.2
--- NOTE | ~2025-08-14 | CT_ITS ---
EXAMINATION: CT HEAD WITHOUT CONTRAST CLINICAL INFORMATION: hypertensive COMPARISON: December 21, 2013. TECHNIQUE: Contiguous axial imaging was performed from the skull base to vertex without intravenous administration of contrast. This CT examination was performed using dose optimization techniques as appropriate, variously including the following: *Automated exposure control *Adjustment of mA and/or kV according to patient size (this includes techniques or standardized protocols for targeted exams where dose is matched to indication/reason for exam; i.e. extremities or head) *Use of iterative reconstruction technique DLP: 732 mGy-cm FINDINGS: No acute intracranial hemorrhage, mass effect, midline shift, hydrocephalus or herniation. Hsu-white matter differentiation is normal Posterior cranial fossa contents demonstrated no acute hemorrhage or mass effect. There is normal position of the cerebellar tonsils. Sellar/suprasellar region demonstrated no gross masses. There is a 2 cm retention cysts versus polyp, left maxillary sinus. Tympanic cavities and mastoid air cells are aerated.. CT/CT head/brain wo IV con IMPRESSION: No acute hemorrhage. No acute or structural brain abnormality based upon CT. Electronically signed by: Davin Norman MD 08/14/2025 11:42 AM EDT
--- NOTE | ~2025-08-14 | XR_ITS ---
EXAMINATION: XR CHEST CLINICAL INFORMATION: URI symptoms. Pnuemonia? COMPARISON: November 04, 2023. TECHNIQUE: Frontal view of the chest was obtained. FINDINGS: No consolidation, pleural effusion or pneumothorax. No hyperinflation. Mild prominence of the interstitial markings. Cardiomediastinal silhouette size is normal. Osseous structures are intact. Degenerative changes in the correct clinical or joints. Patient's large body habitus. XR/XR chest 1V IMPRESSION: Acute small airway inflammatory process cannot be entirely excluded. Electronically signed by: Davin Norman MD 08/14/2025 09:51 AM EDT
--- NOTE | 2025-08-14 09:32 | ED_ITS ---
HPI - General Adult General Chief complaint: Upper Respiratory Symptoms Stated complaint: Sore throat, SOB, headache Time Seen by Provider: 08/14/25 09:22 Source: patient Mode of arrival: ambulatory Limitations: no limitations History of Present Illness ED Provider: Mauro John HPI narrative: 44 yold male with pmh of DM and HTN presents to the ED for coughing, congestion, and sore throat for the past couple of days. patient states denissehter was sick and now he is sick. Patient denies any chest pain or shortness of breath. Patient denies any slurred speech, facial droop loss of extremity loss of vision, nausea, vomiting. Related Data Previous Rx's ?Medication ?Instructions ?Recorded blood pressure monitor #1 ea 01/28/23 lancets 28 gauge (FreeStyle #100 ea 01/28/23 Lancets) blood-glucose meter (FreeStyle #1 ea 02/17/23 [place] Lite kit) blood sugar diagnostic (FreeStyle #100 ea 07/26/23 Lite Strips) albuterol sulfate 90 mcg/actuation 2 puff inhalation Q 4-6H PRN 11/04/23 aerosol inhaler shortness of breath or wheez ing #6.7 grams amlodipine 10 mg tablet 10 mg PO DAILY #90 tabs 01/20 03/15 cholecalciferol (vitamin D3) 25 25 mcg PO DAILY 90 day s #90 caps 02/03/24 mcg (1,000 unit) capsule lisinopril 40 mg tablet 40 mg PO DAILY 90 days #90 t abs 02/03/24 pioglitazone 45 mg tablet 45 mg PO DAILY 90 days #90 t abs 02/03/24 rosuvastatin 10 mg tablet 10 mg PO DAILY 90 days #90 t abs 02/03/24 albuterol sulfate 90 mcg/actuation 2 puff inhalation Q 4-6H PRN 08/14/25 aerosol inhaler (Ventolin HFA) shortness of breath or wheezing #8.5 grams azithromycin 250 mg tablet See Rx Instructions PO .COM PLEX #6 08/14/25 tabs lisinopril 40 mg tablet 40 mg PO DAILY 30 days #30 t abs 08/14/25 nifedipine 90 mg tablet,extended 90 mg PO DAILY 30 day s #30 tabs 08/14/25 release pioglitazone 45 mg tablet 45 mg PO DAILY 30 days #30 t abs 08/14/25 triamcinolone acetonide 55 mcg 2 spray intranasal KINA Y 5 days 08/14/25 nasal spray aerosol (Nasacort) #16.9 mL Allergies Allergy/AdvReac Type Severity Reaction Status Date / Time shrimp (SHRIMP) Allergy Mild ALLERGERY Verified 08/14/25 09:06 SCREENING grass pollen Allergy Unknown Unknown Verified 08/14/25 09:06 nut - unspecified (nut) Allergy Unknown THROAT Verified 08/14/25 09:06 ITCHING pollen extracts (POLLEN) Allergy Unknown CONGESTION, Verified 08/14/25 09:06 SWELLING tuberculin,PPD,multi-puncture Allergy Unknown postitive Verified 08/14/25 09:06 PPD, neg cxr 2017 metformin AdvReac Severe Diarrhea Verified 08/14/25 09:06 oxycodone AdvReac Intermediate tremors Verified 08/14/25 09:06 BERRIES Allergy Unknown UNKNOWN Uncoded 08/14/25 09:06 Review of Systems 2 Review of Systems: Cough, congestion and sore throat Yes all other systems are reviewed and are negative PMFSH Past Medical History Medical History Pure hypercholesterolemia Transaminitis Obese Hypovitaminosis D Essential hypertension Diabetes mellitus Surgical History History of back surgery Family History Family History Father Diabetes Hypertension Mother Hypertension Diabetes Stroke Social History Social History Housing: Apartment Alcohol intake: current Alcohol intake frequency: holidays/special occasions only Alcohol type: beer Patient Tobacco Use Status: Never used Tobacco Smoked in Last 30 Days: No e-Cigarette/Vaping Use: Never Used Second Hand Smoke Exposure: No Use of substances other than those prescribed or required for medical reasons: No Advance Directives: No Advance Directives Information Provided: No Do you have a plan to hurt others: No Plan service: No Current occupational status: unemployed Cognitive needs: No Hearing needs: No Vision needs: No Physical Exam ED Vital Signs: Vital Signs - 24 hr 08/14/25 09:04 08/14/25 09:38 08/14/25 10:24 Temperature 98.8 F Pulse Rate 77 81 Respiratory Rate 18 Blood Pressure 205/93 H 193/103 H 188/100 H Pulse Oximetry 98 97 100 Oxygen Delivery Method Room Air Room Air Room Air 08/14/25 11:00 08/14/25 11:12 08/14/25 11:42 Temperature 99.2 F Pulse Rate 76 67 Respiratory Rate 17 Blood Pressure 191/100 H 194/100 H Pulse Oximetry 98 99 Oxygen Delivery Method Room Air Room Air 08/14/25 11:57 08/14/25 12:44 08/14/25 13:39 Temperature 99.1 F 99.1 F Pulse Rate 67 67 Respiratory Rate 17 17 Blood Pressure 173/93 H 173/100 H 173/100 H Pulse Oximetry 98 98 Oxygen Delivery Method Room Air Room Air BMI result Body Mass Index 35.2 Const General: cooperative, healthy appearing, comfortable, no acute distress, well developed, alert, awake and Physically active Orientation/consciousness: patient oriented x3 HENVA Head: Yes normal to inspection, Yes No palpable skull fracture present, Yes normocephalic and Yes atraumatic Ears: hearing grossly normal bilaterally, external ears normal, TM's normal bilaterally, TM normal on the right, TM normal on the left, EAC's normal, mastoids normal and no periauricular adenopathy Throat: Yes posterior oropharynx normal, Yes tonsils normal and Yes uvula midline Eyes General: appearance normal, both eyes and all related structures Neck Neck: Yes normal visual inspection, Yes full ROM, Yes no lymphadenopathy, Yes no meningeal signs, Yes trachea midline, Yes supple, No anterior neck swelling and No tender Chest Chest palpation & inspection: normal inspection of the chest and normal palpation of entire chest wall Resp Effort & Inspection: normal respiratory effort and able to speak in complete sentences Auscultation: clear to auscultation bilaterally Cardio Jugular venous distension: no JVD Heart sounds: S1 normal heart sound present and S2 normal heart sound present GI Inspection: Yes normal to inspection Palpation (GI): Soft to palpation, not firm, nontender, no guarding and not rigid General: Yes no CVA tenderness Back/Spine/Pelvis Back: no CVA tenderness and No back tenderness Skin General skin exam: no rashes or lesions noted, elasticity normal and turgor normal Neuro General: patient oriented x3, gait normal, tone normal, moves all extremities, Normal light touch and pain sensation, no meningeal signs, no focal motor deficits, CN's II-XI intact bilaterally and normal sensation to monofilament Extrem General: Yes normal to inspection, Yes full ROM and Yes capillary refill normal Psych Appearance: grossly normal, well kempt and not disheveled Medications Administered Discontinued Medications Generic Name Dose Route Start Last Admin Trade Name Suleiman PRN Reason Stop Dose Admin Labetalol HCl 10 mg 08/14/25 10:54 08/14/25 11:00 Labetalol Hcl 100 Mg/20 Ml Vial IVPUSH 08/14/25 10:55 10 mg ONCE ONE Administration Labetalol HCl 20 mg 08/14/25 11:55 08/14/25 12:44 Labetalol Hcl 100 Mg/20 Ml Vial IVPUSH 08/14/25 11:56 Not Given ONCE ONE Medical Decision Making Medical Decision Making [facility] Narrative: [age] year male presents to ED for URI symptoms. Patient is found to be hypotensive. Patient is not taking hypertensive meds for at least 4 months due to lack of insurance. Patient denies any neuro deficits symptoms. Patient has no neuro deficits on exam. Repeat blood pressure systolic 193/103. EKG labs ordered with observed blood pressure. IF still Elevated will give meds. 12:49pm: Patient's [address] scan negative. Kidney function normal. Blood pressure improved with labetalol. Negative for any neuro deficits. Patient is safe for discharge. Patient is educated on being compliant with blood pressure medications. Patient will be given prescription for meds he has not had for 4 months. X-ray shows possible airway disease. You see history of diabetes high blood pressure we will discharged with antibiotics albuterol inhaler. Not suspecting stroke. Patient's need refill for Lisinopril 40mg daily, nifedipine 90mg daily, pioglitazone HCL 45mg. Differential Diagnosis Differential Diagnoses: The differential diagnosis associated with the presentation includes (Sinusitis, pneumonia, COVID, influenza) Admission/Observation Consideration of admission/observation: Escalation of care including admission/observation considered Lab Data [facility] Lab Attestation statement: I reviewed the patient's lab results. 08/14/25 10:36 08/14/25 09:46 Labs: Lab Results 08/14/25 08/14/25 08/14/25 Range/Units 09:15 09:35 09:46 WBC (4.8-10.8) X10*3/uL RBC (4.60-5.80) X10*6/uL Hgb (14.0-18.0) g/dl Hct (42.0-52.0) % MCV (80.0-98.0) fL MCH (27.0-33.0) pg MCHC (31.0-36.0) g/dl RDW (11.0-16.0) % Plt Count (160-400) X10*3/uL MPV (9.4-12.4) fL Immature Gran % (Auto) (0.0-0.4) % Neut % (Auto) (45-73) % Lymph % (Auto) (20-40) % [place] % (Auto) (2-11) % Eos % (Auto) (0-4) % Baso % (Auto) (0-2) % Lymph # (Auto) (1.2-4.9) X10*3/uL [place] # (Auto) (0.1-1.2) X10*3/uL Eos # (Auto) (0.0-0.4) X10*3/uL Baso # (Auto) (0.0-0.2) X10*3/uL Abs Immat Gran (auto) (0.00-0.03) X10*3/uL Absolute Neuts (auto) (2.0-8.3) x10*3/uL Absolute Nucleated RBC (0.0-0.012) X10*3/uL Nucleated RBC % (auto) (0.0-0.2) /100WBC PT (10.9-12.4) SEC INR (0.9-1.1) APTT (26.7-34.1) SEC Sodium 140 (135-145) mmol/L Potassium 4.2 (3.3-5.1) mmol/L Chloride 109 H (96-108) mmol/L Carbon Dioxide 27 (22-29) mmol/L Anion Gap 8 L (12-20) BUN 15 (9-16) mg/dL Creatinine 0.83 (0.5-1.4) mg/dL Estim Creat Clear Calc 131.9 Estimated GFR > 60 POC Glucose 97 (60-115) mg/dL Random Glucose 88 (60-115) mg/dL Calcium 9.5 D (8.4-10.2) mg/dL Total Bilirubin 0.5 (0.0-1.0) mg/dL AST 27 (5-37) U/L ALT 33 (0-40) U/L Alkaline Phosphatase 47 (39-117) U/L Troponin I High Sens 13.8 (<3.5-35.0) ng/L Total Protein 7.7 (6.5-8.0) g/dL Albumin 4.5 (3.5-5.0) g/dL COVID-19 (DENIZ) Negative (Negative) COVID-19 Clin Com See Note Influenza Type A (BESSY) Negative (Negative) Influenza Type B (BESSY) Negative (Negative) Influenza A & B Note See Note S. pyogenes GrpA BESSY Negative (Negative) 08/14/25 08/14/25 Range/Units 10:36 12:16 WBC 9.2 (4.8-10.8) X10*3/uL RBC 4.93 (4.60-5.80) X10*6/uL Hgb 14.6 (14.0-18.0) g/dl Hct 43.2 (42.0-52.0) % MCV 87.6 (80.0-98.0) fL MCH 29.6 (27.0-33.0) pg MCHC 33.8 (31.0-36.0) g/dl RDW 14.0 (11.0-16.0) % Plt Count 197 (160-400) X10*3/uL MPV 10.2 (9.4-12.4) fL Immature Gran % (Auto) 0.3 (0.0-0.4) % Neut % (Auto) 67.3 (45-73) % Lymph % (Auto) 20.5 (20-40) % [place] % (Auto) 7.5 (2-11) % Eos % (Auto) 3.9 (0-4) % Baso % (Auto) 0.5 (0-2) % Lymph # (Auto) 1.9 (1.2-4.9) X10*3/uL [place] # (Auto) 0.7 (0.1-1.2) X10*3/uL Eos # (Auto) 0.4 (0.0-0.4) X10*3/uL Baso # (Auto) 0.1 (0.0-0.2) X10*3/uL Abs Immat Gran (auto) 0.03 (0.00-0.03) X10*3/uL Absolute Neuts (auto) 6.2 (2.0-8.3) x10*3/uL Absolute Nucleated RBC 0.000 (0.0-0.012) X10*3/uL Nucleated RBC % (auto) 0.0 (0.0-0.2) /100WBC PT 12.6 H (10.9-12.4) SEC INR 1.1 (0.9-1.1) APTT 26.9 (26.7-34.1) SEC Sodium (135-145) mmol/L Potassium (3.3-5.1) mmol/L Chloride (96-108) mmol/L Carbon Dioxide (22-29) mmol/L Anion Gap (12-20) BUN (9-16) mg/dL Creatinine (0.5-1.4) mg/dL Estim Creat Clear Calc Estimated GFR POC Glucose (60-115) mg/dL Random Glucose (60-115) mg/dL Calcium (8.4-10.2) mg/dL Total Bilirubin (0.0-1.0) mg/dL AST (5-37) U/L ALT (0-40) U/L Alkaline Phosphatase (39-117) U/L Troponin I High Sens 12.4 (<3.5-35.0) ng/L Total Protein (6.5-8.0) g/dL Albumin (3.5-5.0) g/dL COVID-19 (DENIZ) (Negative) COVID-19 Clin Com Influenza Type A (BESSY) (Negative) Influenza Type B (BESSY) (Negative) Influenza A & B Note S. pyogenes GrpA BESSY (Negative) Independent Interpretation I performed an independent interpretation of an: Plain X-Ray and CT Scan Radiology Impression Discussion of test interpretation with radiology: I have reviewed the radiologist's reading. Independent Historian Clinical information obtained from an independent historian. History obtained from or confirmed by: Other (Patient) Prescription Management I considered prescription management with: Pain Medication and Antibiotic Discharge Plan Discharge Clinical Impression: Bronchitis, Sinusitis, Hypertension Patient Disposition: Home, Self-Care Instructions: Sinusitis (ED), Acute Bronchitis (ED), Hypertension (ED), Medicine Refill (ED) Additional Instructions: Your imaging labs EKG blood work came back reassuring. You will be discharged with your high blood pressure and diabetic medication. We will also be discharged with albuterol inhaler, antibiotic, and nasal spray. Return to the ED for any slurred speech, facial droop, paralysis of extremities, loss of vision, chest pain, shortness of breath, weakness, dizziness, or any other concerning symptoms. Prescriptions: New albuterol sulfate [Ventolin HFA] 90 mcg/actuation HFA aerosol inhaler 2 puff inhalation Q4-6H PRN (Reason: shortness of breath or wheezing) Qty: 8.5 0RF azithromycin 250 mg tablet See Rx Instructions .ROUTE .COMPLEX Qty: 6 0RF Rx Instructions: For 250 mg dose pack: take 500 mg today (day 1), then 250 mg for 4 days (days 2-5) triamcinolone acetonide [Nasacort] 55 mcg aerosol,spray 2 spray intranasal DAILY 5 Days Qty: 16.9 0RF Rx Instructions: administer into each nostril lisinopril 40 mg tablet 40 mg PO DAILY 30 Days Qty: 30 0RF nifedipine 90 mg tablet extended release 90 mg PO DAILY 30 Days Qty: 30 0RF pioglitazone 45 mg tablet 45 mg PO DAILY 30 Days Qty: 30 0RF No Action (DME) blood-glucose meter [FreeStyle [place] Lite] Kit See Rx Instructions .ROUTE .MEDSUPPLY Qty: 1 0RF Rx Instructions: As directed (DME) FreeStyle Lite Strips Strip See Rx Instructions .ROUTE .MEDSUPPLY Qty: 100 1RF Rx Instructions: Once a day As directed albuterol sulfate 90 mcg/actuation HFA aerosol inhaler 2 puff inhalation Q4-6H PRN (Reason: shortness of breath or wheezing) Qty: 6.7 0RF (DME) lancets [FreeStyle Lancets] 28 gauge misc See Rx Instructions .ROUTE .MEDSUPPLY Qty: 100 5RF Rx Instructions: Once a day As directed (DME) blood pressure monitor Kit See Rx Instructions .Route Qty: 1 0RF Rx Instructions: As directed rosuvastatin 10 mg tablet 10 mg PO DAILY 90 Days Qty: 90 1RF pioglitazone 45 mg tablet 45 mg PO DAILY 90 Days Qty: 90 1RF lisinopril 40 mg tablet 40 mg PO DAILY 90 Days Qty: 90 1RF cholecalciferol (vitamin D3) 25 mcg (1,000 unit) capsule 25 mcg PO DAILY 90 Days Qty: 90 2RF amlodipine 10 mg tablet 10 mg PO DAILY Qty: 90 2RF Referrals: Rina Wheat MD [Primary Care Provider, Internal Medicine] - 2 days Referral Note: Management of hypertension and diabetes. Seen for URI symptoms. Bronchitis sinusitis Clinical Impression: Sinusitis Stand Alone Forms: Work/School Release Interventions: ED Discharge Assessment Last Done: 08/14/25 13:39 Discharge Date/Time: 08/14/25 13:39 Print Language: Amharic
--- NOTE | 2025-08-14 09:37 | ECG_ITS ---
Test Reason : sob Blood Pressure : */* mmHG Vent. Rate : 78 BPM Atrial Rate : 78 BPM P-R Int : 162 ms QRS Dur : 82 ms QT Int : 354 ms P-R-T Axes : 11 29 -14 degrees QTcB Int : 403 ms Normal sinus rhythm Normal ECG When compared with ECG of 17-Jan-2018 14:53, No significant change was found Referred By: Mauro Myers Electronically Signed By: Davide Mares
--- NOTE | 2025-08-14 09:52 | MHC.EDTECH ---
EKg done Signed by Md marrero. signed copy given to franklin Lopez
--- NOTE | 2025-08-14 10:36 | PC.NURSE ---
a&ox4. vss and up to date aside from being hypertensive - pt denies any chest pain/dizziness/lightheadedness. on RA baseline as well as currently w/o difficulty. pt presents to the ED c/o upper resp sx x a few days - c/o increased sob/cough/congestion/headache. pt reports daughter is sick at home and now he feels the same way. pt reports he has been unable to take BP meds since april d/t being incarcerated/insurance issues. 20gIV placed in the right hand - labs obtained/sent to lab. ekg performed by [facility]. plan of care ongoing. call orozco placed within reach.
--- NOTE | 2025-08-14 11:09 | PC.NURSE ---
medication administered per provider order. effectiveness pending.
[2025-08-14 12:45] LABS: Troponin-I High Sensitivity 12.4 ng/L (<3.5-35.0)
== END 2025-08-14 13:39 | disposition home or self-care (01) ==
PROVIDERS: Physician Assistant; Emergency Provider Emergency Medicine; PCP Internal Medicine
DX: J32.9 Chronic sinusitis, unspecified (principal); J40 Bronchitis, not specified as acute or chronic; J02.9 Acute pharyngitis, unspecified; R06.02 Shortness of breath; R51.9 Headache, unspecified; I10 Essential (primary) hypertension; Z11.52 Encounter for screening for COVID-19; Z79.899 Other long term (current) drug therapy
CPT/HCPCS: 36415; 70450; 71045; 80053; 82947; 84484; 85025; 85610; 85730; 87502; 87635; 87651; 93005; 96374; 99284; 99285; J1920

== ENCOUNTER → 2025-08-14 09:31 | Outpatient (BNV) | payer OTHER, SELFPAY | PROVIDERS: Emergency Provider Emergency Medicine; PCP Internal Medicine; Visit Provider Radiology Diagnostic Radiology | DX: R51.9 Headache, unspecified (principal); I10 Essential (primary) hypertension; R05.9 Cough, unspecified | CPT/HCPCS: 70450; 71045 ==

== ENCOUNTER → 2025-08-14 09:37 | Outpatient (BNV) | payer OTHER, SELFPAY | PROVIDERS: Emergency Provider Emergency Medicine; PCP Internal Medicine; Visit Provider Internal Medicine Cardiovascular Disease | DX: R06.02 Shortness of breath (principal) | CPT/HCPCS: 93010 ==

== ENCOUNTER 2025-08-24 08:48 | Emergency (ER) | payer OTHER, SELFPAY ==
--- NOTE | ~2025-08-24 | XR_ITS ---
EXAMINATION: XR CHEST CLINICAL INFORMATION: cough,sob COMPARISON: August 14, 2025 TECHNIQUE: Frontal view of the chest was obtained. FINDINGS: No hyperinflation. No consolidation, pleural effusion or pneumothorax. Cardiomediastinal silhouette size is normal. Osseous structures are intact. Patient's large body habitus. XR/XR chest 1V IMPRESSION: No acute airspace disease. Electronically signed by: Davin Norman MD 08/24/2025 09:10 AM EDT
[2025-08-24 08:53] VITALS: BP 162/74; PULSE 71; RESP 18; TEMP 36.1; O2SAT 100; BMI 35.2
[2025-08-24 09:32] LABS: COVID-19 Test Negative (Negative); IDNOW Serial# 55D5AD1C; IDNOW Serial# 58CA691E; Influenza B2 Negative (Negative)
[2025-08-24 09:33] VITALS: PULSE 76; RESP 16; O2SAT 100
[2025-08-24] MEDS: Albuterol Sulfate 2.5 MG, Albuterol/Iprat 2.5/0.5MG 3 ML 3 ML INHALE (09:33)
--- NOTE | 2025-08-24 09:39 | ED_ITS ---
HPI - Asthma General Chief Complaint: Upper Respiratory Symptoms Stated Complaint: Cough Wheezing Time Seen by Provider: 08/24/25 09:14 Source: patient and old records reviewed Mode of arrival: ambulatory Limitations: no limitations History of Present Illness ED Provider: MIRANDA MARTÍNEZ Narrative: 44 yo male with PMH of HLD, obesity, bronchitis, DM here with c/o recent visit on 08/14 treated with azithromycin for bronchitis but he still has cough, wheezing, dyspnea and sputum. He uses his daughters neb with some relief. He carries rescue inhaler. He denies travel/asthma as a child/smoking. He notes no fevers recently but felt chills. He states he has not seen a lung doctor, he has allergies but doesn't take any medications for it. He only carries a rescue inhaler. MD complaint: asthma attack and wheezing Onset (ago): week(s) Severity: moderate Context: recent URI Associated symptoms: productive cough Asthma History: adult onset Treatments Prior to Arrival: inhaled bronchodilator Related Data Previous Rx's ?Medication ?Instructions ?Recorded blood pressure monitor #1 ea 01/28/23 lancets 28 gauge (FreeStyle #100 ea 01/28/23 Lancets) blood-glucose meter (FreeStyle #1 ea 02/17/23 [place] Lite kit) blood sugar diagnostic (FreeStyle #100 ea 07/26/23 Lite Strips) albuterol sulfate 90 mcg/actuation 2 puff inhalation Q 4-6H PRN 11/04/23 aerosol inhaler shortness of breath or wheez ing #6.7 grams amlodipine 10 mg tablet 10 mg PO DAILY #90 tabs 01/20 03/15 cholecalciferol (vitamin D3) 25 25 mcg PO DAILY 90 day s #90 caps 02/03/24 mcg (1,000 unit) capsule lisinopril 40 mg tablet 40 mg PO DAILY 90 days #90 t abs 02/03/24 pioglitazone 45 mg tablet 45 mg PO DAILY 90 days #90 t abs 02/03/24 rosuvastatin 10 mg tablet 10 mg PO DAILY 90 days #90 t abs 02/03/24 albuterol sulfate 90 mcg/actuation 2 puff inhalation Q 4-6H PRN 08/14/25 aerosol inhaler (Ventolin HFA) shortness of breath or wheezing #8.5 grams azithromycin 250 mg tablet See Rx Instructions PO .COM PLEX #6 08/14/25 tabs lisinopril 40 mg tablet 40 mg PO DAILY 30 days #30 t abs 08/14/25 nifedipine 90 mg tablet,extended 90 mg PO DAILY 30 day s #30 tabs 08/14/25 release pioglitazone 45 mg tablet 45 mg PO DAILY 30 days #30 t abs 08/14/25 triamcinolone acetonide 55 mcg 2 spray intranasal KINA Y 5 days 08/14/25 nasal spray aerosol (Nasacort) #16.9 mL albuterol sulfate 2.5 mg/3 mL 2.5 mg (3 mL) inhalation Q4-6H PRN 08/24/25 (0.083 %) solution for nebulization bronchospasm #75 m L cetirizine 10 mg capsule 10 mg PO DAILY #30 caps 02/13 fluticasone propionate 100 1 inh inhalation BID #60 ea 08/24/25 mcg/actuation blister powder for inhalation prednisone 20 mg tablet 40 mg (2 x 20 mg) PO DAILY 4 days 08/24/25 #8 tabs Allergies Allergy/AdvReac Type Severity Reaction Status Date / Time shrimp (SHRIMP) Allergy Mild ALLERGERY Verified 08/24/25 08:53 SCREENING grass pollen Allergy Unknown Unknown Verified 08/24/25 08:53 nut - unspecified (nut) Allergy Unknown THROAT Verified 08/24/25 08:53 ITCHING pollen extracts (POLLEN) Allergy Unknown CONGESTION, Verified 08/24/25 08:53 SWELLING tuberculin,PPD,multi-puncture Allergy Unknown postitive Verified 08/24/25 08:53 PPD, neg cxr 2016 metformin AdvReac Severe Diarrhea Verified 08/24/25 08:53 oxycodone AdvReac Intermediate tremors Verified 08/24/25 08:53 BERRIES Allergy Unknown UNKNOWN Uncoded 08/14/25 09:06 Review of Systems Review of Systems: Constitutional : No Fever, No Chills ENT/Mouth : No Hoarseness, No sore throat, No Rhinorrhea Eyes: No Redness, No Discharge, No Vision Changes Cardiovascular : No Chest Pain, positive SOB, positive Dyspnea on Exertion, No Edema Respiratory : positive Cough, pos Sputum, positive Wheezing, Gastrointestinal : No Nausea, No Vomiting, No Diarrhea, No abdominal Pain Genitourinary : No Dysuria, No Hematuria Musculoskeletal : No joint pain, No Myalgias Skin : No rash Neuro : No Weakness, No Numbness, No Headache Psych : No anxiety, depression Heme/Lymph: No Bruising, No Bleeding Endocrine : No Polyuria, No Polydipsia All other systems reviewed and are negative Yes all other systems are reviewed and are negative [facility] Past Medical History Attestation statement: The following information was validated with the patient. Source: old records reviewed Medical History Pure hypercholesterolemia Transaminitis Obese Hypovitaminosis D Essential hypertension Diabetes mellitus Surgical History History of back surgery Family History Family History Father Diabetes Hypertension Mother Hypertension Diabetes Stroke Social History Social History Housing: Apartment Alcohol intake: current Alcohol intake frequency: holidays/special occasions only Alcohol type: beer Patient Tobacco Use Status: Never used Tobacco e-Cigarette/Vaping Use: Never Used Second Hand Smoke Exposure: No service: No Current occupational status: unemployed Cognitive needs: No Hearing needs: No Vision needs: No Physical Exam Vital Signs: Vital Signs: Last Vital Signs Temp 98.6 F 08/24/25 09:46 Pulse 105 H 08/24/25 09:46 Resp 18 08/24/25 09:46 BP 165/90 H 08/24/25 09:46 Pulse Ox 98 08/24/25 09:46 O2 Del Method Room Air 08/24/25 09:46 BMI result Body Mass Index 35.2 Appearance: Alert. Oriented X3. No acute distress. Eyes: Pupils equal, round and reactive to light. ENT: Pharynx normal. Neck: Normal inspection. Neck supple. CVS: Normal heart rate and rhythm. Pulses normal. Respiratory: No respiratory distress. Breath sounds with diff exp wheezes mild but no resp distress Abdomen: Soft and nontender. Skin: Skin warm and dry. Normal skin color. Extremities: No lower extremity edema. Neuro: Oriented X 3. No motor deficit. No sensory deficit. Medications Administered Discontinued Medications Generic Name Dose Route Start Last Admin Trade Name Freq PRN Reason Stop Dose Admin Albuterol Sulfate 2.5 mg/ 0 mg 08/24/25 09:29 08/24/25 09:33 Albuterol/Ipratropium 3 ml INHALE 08/24/25 09:30 5 dose ONCE ONE Administration Prednisone 60 mg 08/24/25 09:21 08/24/25 09:45 Prednisone 20 Mg Tablet PO 08/24/25 09:22 60 mg ONCE ONE Administration Medical Decision Making Medical Decision Making [facility] Narrative: 44 yo male with PMH of HLD, obesity, bronchitis, DM here with c/o persistent cough, wheeze, despite just azithro on 08/14 at this time he has wheezes he c learly has untreated seasonal allergies contributing to his disease. He should see a lung doctor. At this time will get neb, put on steroids and monitor blood sugars, start steroid INH after he completes therapy and refill nebulizer. I will also put in referral to pulm. He should be started on zyrtec as well. I do not believe he has an infection or needs admission at this time. Differential Diagnosis Differential Diagnoses: The differential diagnosis associated with the presentation includes asthhma, reactive airway ds, untreated allergies Admission/Observation Consideration of admission/observation: Escalation of care including admission/observation considered no hypoxia, clear lungs after therapy, needs to take outpatient therapy to improve symptoms Lab Data [facility] Lab Attestation statement: I reviewed the patient's lab results. Labs: Lab Results 08/24/25 Range/Units 09:01 COVID-19 (DENIZ) Negative (Negative) COVID-19 Clin Com See Note Influenza Type A (BESSY) Negative (Negative) Influenza Type B (BESSY) Negative (Negative) Influenza A & B Note See Note Independent Interpretation I performed an independent interpretation of an: Plain X-Ray (normal ) Radiology Impression Discussion of test interpretation with radiology: I have reviewed the radiologist's reading. External Record Review External record reviewed: Outpatient record Prescription Management I considered prescription management with: Other Chronic Conditions Patient?s care impacted by: Diabetes Discharge Plan Discharge Clinical Impression: Reactive airway disease Patient Disposition: Home, Self-Care Instructions: Asthma (ED), Wheezing (ED) Additional Instructions: normal chest xray negative viral panel at this time monitor your blood sugars on prednisone they will increase take all medications as prescribed after you finish the prednisone (oral pill) start the steroid inhaler. rinse your mouth after. return at any time for any worsening symptoms you need to be on maintenance therapy please see your doctor NEXT DOSE OF PREDNISONE IS TOMORROW Prescriptions: New albuterol sulfate 2.5 mg /3 mL (0.083 %) solution for nebulization 2.5 mg inhalation Q4-6H PRN (Reason: bronchospasm) Qty: 75 1RF prednisone 20 mg tablet 40 mg PO DAILY 4 Days Qty: 8 0RF fluticasone propionate 100 mcg/actuation blister with device 1 inh inhalation BID Qty: 60 1RF Rx Instructions: rinse mouth after cetirizine 10 mg capsule 10 mg PO DAILY Qty: 30 1RF No Action (DME) blood-glucose meter [FreeStyle [place] Lite] Kit See Rx Instructions .ROUTE .MEDSUPPLY Qty: 1 0RF Rx Instructions: As directed (DME) FreeStyle Lite Strips Strip See Rx Instructions .ROUTE .MEDSUPPLY Qty: 100 1RF Rx Instructions: Once a day As directed albuterol sulfate 90 mcg/actuation HFA aerosol inhaler 2 puff inhalation Q4-6H PRN (Reason: shortness of breath or wheezing) Qty: 6.7 0RF albuterol sulfate [Ventolin HFA] 90 mcg/actuation HFA aerosol inhaler 2 puff inhalation Q4-6H PRN (Reason: shortness of breath or wheezing) Qty: 8.5 0RF azithromycin 250 mg tablet See Rx Instructions .ROUTE .COMPLEX Qty: 6 0RF Rx Instructions: For 250 mg dose pack: take 500 mg today (day 1), then 250 mg for 4 days (days 2-5) triamcinolone acetonide [Nasacort] 55 mcg aerosol,spray 2 spray intranasal DAILY 5 Days Qty: 16.9 0RF Rx Instructions: administer into each nostril lisinopril 40 mg tablet 40 mg PO DAILY 30 Days Qty: 30 0RF nifedipine 90 mg tablet extended release 90 mg PO DAILY 30 Days Qty: 30 0RF pioglitazone 45 mg tablet 45 mg PO DAILY 30 Days Qty: 30 0RF (DME) lancets [FreeStyle Lancets] 28 gauge misc See Rx Instructions .ROUTE .MEDSUPPLY Qty: 100 5RF Rx Instructions: Once a day As directed (DME) blood pressure monitor Kit See Rx Instructions .Route Qty: 1 0RF Rx Instructions: As directed rosuvastatin 10 mg tablet 10 mg PO DAILY 90 Days Qty: 90 1RF pioglitazone 45 mg tablet 45 mg PO DAILY 90 Days Qty: 90 1RF lisinopril 40 mg tablet 40 mg PO DAILY 90 Days Qty: 90 1RF cholecalciferol (vitamin D3) 25 mcg (1,000 unit) capsule 25 mcg PO DAILY 90 Days Qty: 90 2RF amlodipine 10 mg tablet 10 mg PO DAILY Qty: 90 2RF Referrals: [facility] [place] Pulmonology Services [Provider Group, Pulmonology] Stand Alone Forms: Work/School Release Print Language: Swiss
[2025-08-24 09:46] VITALS: BP 165/90; PULSE 105; RESP 18; TEMP 37; O2SAT 98
--- NOTE | 2025-08-24 09:56 | PC.NURSE ---
pt reports sx improved s/p breathing tx. medication administered per provider order. pending d/c.
[2025-08-24 09:57] VITALS: BP 165/90; PULSE 105; RESP 18; TEMP 37; O2SAT 98
[2025-08-24 09:58] VITALS: O2SAT 99
== END 2025-08-24 10:13 | disposition home or self-care (01) ==
PROVIDERS: Emergency Provider Emergency Medicine; PCP Internal Medicine
DX: J45.909 Unspecified asthma, uncomplicated (principal); R05.9 Cough, unspecified; E11.9 Type 2 diabetes mellitus without complications; Z11.52 Encounter for screening for COVID-19; Z79.899 Other long term (current) drug therapy
CPT/HCPCS: 71045; 87502; 87635; 94640; 99284; 99285

== ENCOUNTER → 2025-08-24 09:00 | Outpatient (BNV) | payer OTHER, SELFPAY | PROVIDERS: Emergency Provider Emergency Medicine; PCP Internal Medicine; Visit Provider Radiology Diagnostic Radiology | DX: R05.9 Cough, unspecified (principal); R06.02 Shortness of breath | CPT/HCPCS: 71045 ==

== ENCOUNTER 2025-10-08 15:21 | Outpatient (AMB) | payer OTHER, SELFPAY ==
[2025-10-08 15:26] VITALS: BP 140/82; PULSE 74; O2SAT 99; BMI 36.3
--- NOTE | 2025-10-08 15:26 | A.OFFVIS_ITS ---
Vital Signs 10/08/25 15:26 Height 5 ft 7 in Weight 231 lb 7.766 oz BMI 36.3 BP 140/82 H Blood Pressure Location Lt brachial Position Sitting Pulse 74 Pulse Source Pulse Oximeter Pulse Oximetry (%) 99 Oxygen Delivery Method Room Air Intake Visit Reasons: Restrictive Airway Disease Intake Note: pt is here as a new patient, he states he was in ER and was told Bronchitis, tx with antibiotic but did not get better went back for 2nd time to ER , given stronger antibiotic and allergy pill and referred to pulmonary. Transportation Job Titles Required: No Allergies shrimp (SHRIMP) Allergy (Mild, Verified 10/08/25 15:48) ALLERGERY SCREENING grass pollen Allergy (Unknown, Verified 10/08/25 15:48) Unknown nut - unspecified (nut) Allergy (Unknown, Verified 10/08/25 15:48) THROAT ITCHING pollen extracts (POLLEN) Allergy (Unknown, Verified 10/08/25 15:48) CONGESTION, SWELLING tuberculin,PPD,multi-puncture Allergy (Unknown, Verified 10/08/25 15:48) postitive PPD, neg cxr 2016 metformin Adverse Reaction (Severe, Verified 10/08/25 15:48) Diarrhea oxycodone Adverse Reaction (Intermediate, Verified 10/08/25 15:48) tremors BERRIES Allergy (Unknown, Uncoded 10/08/25 15:48) UNKNOWN Medication List - Last Reconciled 10/08/25 by oYla Arndt MD albuterol sulfate 2.5 mg (3 mL) inhalation Q4-6H PRN albuterol sulfate 90 mcg/actuation (Ventolin HFA) 2 puffs inhalation Q4-6H PRN amlodipine 10 mg PO DAILY blood pressure monitor As directed blood sugar diagnostic (FreeStyle Lite Strips) Once a day As directed blood-glucose meter (FreeStyle [place] Lite kit) As directed cetirizine 10 mg PO DAILY cholecalciferol (vitamin D3) 25 mcg PO DAILY 90 days fluticasone propionate 100 mcg/actuation 1 inh inhalation BID lancets (FreeStyle Lancets) Once a day As directed lisinopril 40 mg PO DAILY 30 days nifedipine ER 90 mg PO DAILY 30 days rosuvastatin 10 mg PO DAILY 90 days triamcinolone acetonide (Nasacort) 2 sprays intranasal DAILY 5 days Do you need a note to return to daycare/school/sports/work: No HPI HPI Restrictive Airway Disease: Details: This 44 years old gentleman is here for the 1st time for pulmonary evaluation and ongoing treatment. In the last few months he had to go to the emergency room at least twice for acute attacks of wheezing cough and shortness of breath. Each time he is treated with a course of antibiotic, the short course of prednisone , and use of albuterol solution in the nebulizer, and he gets better. He continues to have intermittent bouts of nasal congestion and cough. In between acute attacks he remains active and continues to work. He gives history of upper airway allergies since his younger age. He used to see an tool specialist who also then did skin testing, and told him that he was allergic to many outdoor triggers such as leaves, gross is dorsey. He has 1 cat and 2 dogs at home and he say is when he had allergy testing he was told that he is not allergic to these household pets. . Currently he is on fluticasone inhaler 100 mg once a day, and albuterol HFA 2 puffs Q 6 hours p.r.n.. When he has acute attacks he prefers to use albuterol solution in the nebulizer. During his past 2 episodes of asthma/bronchitis, he used the nebulizer of his daughter . Denies smoking cigarettes or marijuana. 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 [facility] Medical History (Updated 10/08/25 @ 16:17 by Yola Arndt MD) Restrictive lung disease Obesity (BMI 30-39.9) Asthma Pure hypercholesterolemia Transaminitis Obese Hypovitaminosis D Essential hypertension Diabetes mellitus Surgical History History of back surgery Family History Father Diabetes Hypertension Mother Hypertension Diabetes Stroke Social History Housing: Apartment Alcohol intake: current Alcohol intake frequency: holidays/special occasions only Alcohol type: beer Patient Tobacco Use Status: Never used Tobacco e-Cigarette/Vaping Use: Never Used Second Hand Smoke Exposure: No service: No Current occupational status: unemployed Cognitive needs: No Hearing needs: No Vision needs: No Review of Systems Const All systems reviewed & are unremarkable except as noted in HPI and below Eyes Reports no additional complaints ENT Reports nasal congestion (Mild off and on) Card Denies no additional complaints Resp Reports as per HPI GI Reports no additional complaints Reports no additional complaints Musc Reports back pain (Has had back surgery) Skin/Breast Reports system reviewed and no additional complaints, except as documented Neuro Reports no additional complaints Psych Reports no additional complaints Endo Reports no additional complaints Ramon/Lymph Reports no additional complaints Physical Exam Vital Signs: Last Vital Signs Pulse 74 10/08/25 15:26 BP 140/82 H 10/08/25 15:26 Pulse Ox 99 10/08/25 15:26 Oxygen Delivery Method Room Air 10/08/25 15:26 BMI result Body Mass Index 36.3 Const General: healthy appearing, comfortable, no acute distress, alert and awake Orientation/consciousness: patient oriented x3 HEENT Head: Yes normal to inspection General nose exam: No nasal polyps present and No nasal discharge present Face and sinus: Yes sinuses nontender Mouth: oropharynx normal Throat: Yes posterior oropharynx normal Eyes General: appearance normal, both eyes and all related structures Neck Neck: Yes normal visual inspection, Yes no lymphadenopathy, Yes trachea midline and Yes no JVD Thyroid: Thyroid normal Chest Chest palpation & inspection: normal inspection of the chest, normal palpation of entire chest wall and no tenderness Resp Other: Chest is symmetrical. Percussion note resonant. Breath sounds are somewhat distant due. To obese chest wall Breath sounds are clear and no wheezes or rhonchi. are heard today Cardio Palpation: normal PMI Rate: regular rate Rhythm: regular rhythm Heart sounds: no gallops and no murmurs Peripheral pulses: Peripheral pulses 2+ throughout GI Palpation (GI): Soft to palpation, nontender, No hepatosplenomegaly present and no masses Auscultation: normal bowel sounds Back/Spine/Pelvis Thoracic/Lumbar Spine: thoracic and lumbar spine normal to inspection and thoraco-lumbar ROM limited Skin General skin exam: no rashes or lesions noted Neuro General: patient oriented x3 and no focal motor deficits Cranial nerves: Yes CN's II-XII intact bilaterally Extrem General: Yes normal to inspection, Yes no clubbing, cyanosis or edema and Yes no calf tenderness Psych Appearance: grossly normal and well kempt Speech and movement: Normal speech and movement present Office Procedures Spirometry Testing Spirometry Comments: In office spirometry completed with results given to Dr Arndt. [address]- Spirometry Results Reviewed Results Reviewed: Chest x-ray 08/24/25 at emergency room,, normal SPIROMETRY :FVC=74 % FEV1= 80 % FEV1/FVC= 87 FEF 25-75 =113 % Assessment & Plan Assessment & Plan (1) Obesity (BMI 30-39.9): Comment: HE IS GROSSLY OBESE, CURRENT BMI 36.3. I TALKED TO HIM ABOUT POSSIBLE SYMPTOMS OF SLEEP APNEA. HE CLAIMS THAT HE SLEEPS GOOD AND NO ISSUES. Code(s): E66.9 - Obesity, unspecified Category: Medical Plan: I DID ALERT HIM THAT WITH HIS OBESITY HE WILL BE PRONE TO HAVE SLEEP APNEA. HE NEEDS TO LOSE WEIGHT . HE SHOULD BE SLEEPING IN LATERAL POSITION MOST OF THE TIME. (2) Asthma: Comment: HE HAS A PATTERN OF MILD INTERMITTENT BRONCHIAL ASTHMA. FOR THE LAST 2 ATTACKS IN AND AUGUST OF THIS YEAR , HE HAD TO GO TO THE EMERGENCY ROOM. Code(s): J45.909 - Unspecified asthma, uncomplicated Category: Medical Plan: I EDUCATED HIM ABOUT THE TREATMENT OF BRONCHIAL ASTHMA. HE NEEDS TO BE ON A MAINTENANCE , STEROID INHALER . I WILL ORDER ARNUITY-100 ,1 INHALATION DAILY AND HE SHOULD USE ALBUTEROL HFA ( VENTOLIN ) 2 PUFFS Q 4-6 HOURS PRN. I TOLD HIM THAT TO HAVE CAT AND DOGS AT HOME IN THE HOUSE MAKES HIM MORE PRONE TO HAVE ALLERGY ATTACKS AND ASTHMA. HE SHOULD STAY AWAY FROM THEM MUCH POSSIBLE. (3) Restrictive lung disease: Comment: PATIENT HAS GROSS OBESITY. SPIROMETRY SHOWS MILD RESTRICTIVE PULMONARY DISORDER, FVC= 74 % Code(s): J98.4 - Other disorders of lung Category: Medical Plan: EXPLAINED TO THE PATIENT THAT BECAUSE OF BEING OVERWEIGHT HIS LUNG CAPACITY IS LOW. HE NEEDS TO LOSE WEIGHT AT LEAST 10-15 LB. HE SHOULD TRY TO DO DEEP BREATHING EXERCISES ON HIS OWN 2 OR 3 TIMES A DAY. Orders: Orders AMB Spirometry Testing Today J98.4 - Other disorders of lung Medications: New fluticasone furoate 100 mcg/actuation (Arnuity Ellipta) 1 inh inhalation DAILY 30 ea 3RF ASTHMA 30 days Coding Level of Care Code New Pt Level 3 (21423) Diagnoses Obesity (BMI 30-39.9) E66.9 Asthma J45.909 Restrictive lung disease J98.4 CPT Codes Spirometry - CPT: 98970- Spirometry ([id number])
--- OUTSIDE RECORDS SUMMARY | 2025-10-09 05:59 | XMS_ITS | Data Portability ---
Author Organization [facility] Address [address] [place] [address] Assessment No assessment recorded. Plan of Treatment Reminders Order Date Submit Date Provider Last Modified By Organization Details Last Modified Time Details Appointments None record ed. Lab None record ed. Referral None record ed. Procedures None record ed. Surgeries None record ed. Imaging None record ed. Medication Orders None record ed. Patient TargetsNo targets recorded. Patient InstructionsNo instructions recorded. Reason for Referral None Reported. Procedures Surgical History Date Name Laterality Status Provider Name and Address Organization Details Recorded Time [facility]-DOT PHYSICAL completed Lisy CORTEZ [employer] [facility] 04/15/2023 08:17:43 Imaging Results None recorded. Procedure Notes None recorded. Medical Equipment None Reported. Vitals None Recorded Social History None recorded. Functional Status None recorded. Mental Status None recorded. Family History Nothing Reported. Medical History No medical history recorded. Past Encounters Encounter ID Performer Location Encounter Start Date Encounter Closed Date Diagnosis/Indication Diagnosis SNOMED-CT Code Diagnosis ICD10 Code Diagnosis IMO Codes Diagnosis Note [id number] [facility] [address] [place] [address] 02/18/2022 15:15:04 02/18/2022 16:57:12 [id number] [place] [address] [place] [address] 04/15/2023 08:11:32 04/15/2023 09:20:27 Fitting Room Inspector license medical examination [id number] Z02.4 Physical examination [phone] Z02.4 Health Concerns Section Related Observation LastModified by Organization Detai ls LastModified Time None Recorded Concern Status LastModified by Organization Details LastModified Time None Recorded Advance Directives Directive None Recorded Payers Insurance Date Sequence Insurance Name Policy Number Policy Rubin Covered Member ID Rubin Member ID Guarantor Name 04/15/2023 1 [facility] HEALTH NET PLAN (MEDICAID HMO) EVERARDOColleen Tai Arreguin [id number] Tai Arreguin 04/15/2023 OC-PAY AT TIME OF SERVICE 2022 Tai Arreguin PAY AT TIME OF SERVICE 20 PAY AT TIME OF SERVICE 20 Tai Arreguin 04/15/2023 PAY AT TOS Tai Arreguin PAY AT TIME OF SERVICE 20 PAY AT TIME OF SERVICE 20 Tai Arreguin
== END 2025-10-08 16:11 | disposition home or self-care (01) ==
LOC: HO.HPS 15:22
PROVIDERS: PCP Internal Medicine; Referring Provider Emergency Medicine; Visit Provider Internal Medicine
DX: E66.9 Obesity, unspecified (principal); J45.909 Unspecified asthma, uncomplicated; J98.4 Other disorders of lung
CPT/HCPCS: 94010; 99203

== ENCOUNTER → 2025-10-08 15:21 | Outpatient (BNVA) | payer OTHER, SELFPAY | PROVIDERS: PCP Internal Medicine; Referring Provider Emergency Medicine; Visit Provider Internal Medicine | DX: E66.01 Morbid (severe) obesity due to excess calories (principal); J45.909 Unspecified asthma, uncomplicated; J98.4 Other disorders of lung | CPT/HCPCS: 94010; 99202 ==